=== PATIENT | female | born 1995 | race Caucasian/White ===

== ENCOUNTER 2020-08-17 19:16 | Inpatient (IN) ==
--- NOTE | 2020-08-17 19:53 | Emergency Department Note ---
Impression & Plan Mood disorder, Suicidal ideation ED Provider Note NAME: VICKY HINSON AGE: 25 SEX: F : 1995 ARRIVES VIA: Walk-In INFORMANT: Patient ED PROVIDER(S): Mau Zaldivar DO CHIEF COMPLAINT: Feeling unsafe at home HPI: Patient is a 25-year-old female who presents the ER for as she has a history of depression anxiety, PTSD, ADHD and both her therapist and psychia trist question bipolar. She was initially tapering off her Celexa and everything started to get worse. They stopped this. They put her on Seroquel on Wednesday. Nothing has improved. She is having continued panic attacks. She sees no and 2 days. She notes she has having trouble managing getting through each hour during the day. She feels as though she is going to hurt her self. She took a tab of Benadryl to help her sleep but ended up dumping the bottle down the drain as she was concerned that she was going to overdose with this medication. She did the same thing with muscle relaxer. She does not trust herself with any medications at this time. She wants to come in to be evaluated . She has no complaints at this time. Pt denies headache, change in vision, fevers, chest pain, shortness of breath, nausea, vomiting, diarrhea, and pain with urination. ROS: See above HPI for pertinent positives & negatives. A total of 10 systems reviewed and were otherwise negative. PAST MEDICAL HISTORY:Anxiety PAST SURGICAL HISTORY:None FAMILY HISTORY:See Below SOCIAL HISTORY:See Below HOME MEDICATIONS:See Below ALLERGIES:See Below VITALS:See Below PHYSICAL EXAMINATION: GENERAL: Sitting up in bed, alert, tearful and upset EYE EXAM: normal conjunctiva. OROPHARYNX: no exudate, no erythema, lips, buccal mucosa, and tongue normal and mucous membranes are moist NECK: supple, no nuchal rigidity, no adenopathy, non-tender LUNGS: Clear to auscultation. Normal chest wall mechanics HEART: no murmurs, S1 normal and S2 normal ABDOMEN: abdomen soft, non-tender, normo-active bowel sounds, no masses, no rebound or guarding. BACK: Back is symmetrical on inspection and there is no deformity, no midline tenderness, no CVA tenderness. SKIN: no rashes and no bruising UPPER EXTREMITIES: upper extremities are grossly normal. LOWER EXTREMITIES: No pitting edema. NEURO EXAM: Normal sensorium, cranial nerves II-XII grossly intact, normal speech, no gross weakness of arms, no gross weakness of legs. PSYCH: Admits to suicidal thoughts and feeling unsafe at home. She feels helpless is having trouble sleeping. MEDICAL DECISION MAKING: Patient is a 25-year-old female who presents the ER for depression and anxiety. She notes that she has become so anxious that she is struggling to make it through each hour. She feels unsafe that she does not trust herself at home. She does have some thoughts of wanting to kill herself. She denies any auditory visual hallucinations. Labs were obtained showed no significant leukocytosis or anemia. BMP normal LFTs TSH was unremarkable. UA was negative. was negative. Tox was negative. Alcohol was negative. Bed search was suspended and patient was signed out to Dr. Mullins at the change of shift awaiting placement. Observation Status: Indication: Psychiatric evaluation and placement Patient with a family history of heart disease, was seen first at 1930 hrs and was necessary in order to determine medical stability and placement and avoid unnecessary admission. Upon reevaluation, 4.5 hours of observation revealed that the patient should be observed until the morning when bed search resumes. Disposition date and time 08/17/20 at 20 3045 Triage Nursing notes reviewed. Prior medical records reviewed Vital Signs: reviewed and remarkable for no significant abnormalities Differential diagnosis: Mood disorder, infection, hypoglycemia, electrolyte abnormalities, cardiac sources, intracerebral event, toxicologic, trauma, neurologic, as well as other pathologies. ER treatment provided: See below Diagnostics interpreted by me: ECG: none Laboratory studies: As stated above and show below. Imaging studies: See below Consultation(s): none ED COURSE: Procedures: none Critical Care: None Past Med/Surg History Medical History (Updated 08/17/20 @ 23:41 by Mau Zaldivar DO) Urinary tract infection Social History Smoking Status: Current every day smoker Preferred Language: Estonian current occupational status: student Feels Safe at Home: Yes Allergies Allergies Allergy/AdvReac Type Severity Reaction Status Date / Time No Known Allergies Allergy Verified 09/30/19 21:44 Home Meds Home Medications Medication Instructions Recorded Confirmed citalopram 20 mg PO DAILY 09/30/19 08/17/20 dextroamphetamine-amphetamine 25 mg PO QAM PRN 09/30/19 08/17/20 [Adderall XR] dextroamphetamine-amphetamine 10 mg PO DAILY PRN 09/30/19 08/17/20 [Adderall] etonogestrel [Nexplanon] 68 mg SUBDERMAL DIRECTED 09/30/19 08/17/20 quetiapine 50 mg PO HS 08/17/20 08/17/20 Results & Data (ED) Vital Signs Vital Signs - 24 hr 08/17/20 19:29 Temperature 37.4 C Temperature Source Oral Pulse Rate 92 H Respiratory Rate 18 Respiratory Effort / Characteristics Non-Labored Respiratory Depth Normal Blood Pressure 124/88 Blood Pressure Mean 100 Blood Pressure Position Sitting Pulse Oximetry 99 Oxygen Delivery Method Room Air Sepsis Recent Fever Within 48 Hours No Sepsis New/Unexplained Change in Mental Status No Sepsis Action Taken by Nursing No Action Required Laboratory Data Result diagrams: 08/17/20 19:55 08/17/20 19:55 Lab Results 08/17/20 08/17/20 08/17/20 Range/Units 19:43 19:43 19:43 WBC (4.8-10.8) K/uL RBC (4.2-5.4) M/uL Hgb (12.0-16.0) g/dL Hct (37-47) % MCV (80-100) fL MCH (25-34) pg MCHC (32-36) g/dL RDW Std Deviation (36.4-46.3) fL RDW Coeff of Kamille (11.5-14.5) % Plt Count (130-400) K/uL MPV (7.4-10.4) fL Immature Gran % (Auto) % Neut % (Auto) % Lymph % (Auto) % Woods % (Auto) % Eos % (Auto) % Baso % (Auto) % Neut # (Auto) (1.4-6.5) K/uL Lymph # (Auto) (1.2-3.4) K/uL Woods # (Auto) (0.11-0.59) K/uL Eos # (Auto) (0-0.5) K/uL Baso # (Auto) (0-0.2) K/uL Immature Gran # (Auto) (0.00-0.02) K/uL Sodium (136-145) mmol/L Potassium (3.5-5.1) mmol/L Chloride (98-107) mmol/L Carbon Dioxide (21-32) mmol/L Anion Gap (3-11) BUN (7-18) mg/dl Creatinine (0.6-1.2) mg/dl Est Cr Clr Drug Dosing Est GFR ( Amer) Est GFR (Non-Af Amer) BUN/Creatinine Ratio (10-20) Glucose (70-99) mg/dl Calcium (8.5-10.1) mg/dl Total Bilirubin (0.2-1) mg/dl AST (15-37) U/L ALT (12-78) U/L Alkaline Phosphatase (45-117) U/L Total Protein (6.4-8.2) gm/dl Albumin (3.4-5.0) gm/dl Globulin (2.5-4.0) gm/dl Albumin/Globulin Ratio (0.9-2) TSH (0.300-4.500) uIu/ml Urine Color Yellow Urine Appearance Clear (Clear) Urine pH 7.5 (4.5-7.5) Ur Specific [place] 1.022 (1.000-1.030) Urine Protein Negative (Negative) Urine Glucose (UA) Negative (Negative) Urine Ketones Trace H (Negative) Urine Blood Negative (Negative) Urine Nitrite Negative (Negative) Urine Bilirubin Negative (Negative) Urine Urobilinogen Negative (Negative) Ur Leukocyte Esterase Negative (Negative) POC Ur Test NEG (NEG) Salicylates (2.8-20) mg/dl Urine Opiates Screen Neg (Neg) Ur Methadone, Qual Neg (Neg) Acetaminophen (10-30) ug/ml Urine Barbiturates Neg (Neg) Ur Phencyclidine (PCP) Neg (Neg) U Amphetamin/Meth Scrn Pos H (Neg) MDMA (Ecstasy) Screen Neg (Neg) U Benzodiazepines Scrn Neg (Neg) Ur Cocaine Metabolite Neg (Neg) U Marijuana (THC) Screen Neg (Neg) Ethyl Alcohol mg/dL (0-3) mg/dl 08/17/20 08/17/20 08/17/20 Range/Units 19:55 19:55 19:55 WBC 7.61 (4.8-10.8) K/uL RBC 4.57 (4.2-5.4) M/uL Hgb 15.0 (12.0-16.0) g/dL Hct 42.0 (37-47) % MCV 91.9 (80-100) fL MCH 32.8 (25-34) pg MCHC 35.7 (32-36) g/dL RDW Std Deviation 41.7 (36.4-46.3) fL RDW Coeff of Kamille 12.3 (11.5-14.5) % Plt Count 360 (130-400) K/uL MPV 9.1 (7.4-10.4) fL Immature Gran % (Auto) 0.1 % Neut % (Auto) 72.8 % Lymph % (Auto) 19.7 % Woods % (Auto) 5.9 % Eos % (Auto) 1.4 % Baso % (Auto) 0.1 % Neut # (Auto) 5.53 (1.4-6.5) K/uL Lymph # (Auto) 1.50 (1.2-3.4) K/uL Woods # (Auto) 0.45 (0.11-0.59) K/uL Eos # (Auto) 0.11 (0-0.5) K/uL Baso # (Auto) 0.01 (0-0.2) K/uL Immature Gran # (Auto) 0.01 (0.00-0.02) K/uL Sodium 138 (136-145) mmol/L Potassium 3.6 (3.5-5.1) mmol/L Chloride 105 (98-107) mmol/L Carbon Dioxide 28 (21-32) mmol/L Anion Gap 5.0 (3-11) BUN 10 (7-18) mg/dl Creatinine 0.80 (0.6-1.2) mg/dl Est Cr Clr Drug Dosing Not Reportable Est GFR ( Amer) 120.4 Est GFR (Non-Af Amer) 103.9 BUN/Creatinine Ratio 12.7 (10-20) Glucose 95 (70-99) mg/dl Calcium 9.4 (8.5-10.1) mg/dl Total Bilirubin 0.5 (0.2-1) mg/dl AST 10 L (15-37) U/L ALT 17 (12-78) U/L Alkaline Phosphatase 57 (45-117) U/L Total Protein 7.8 (6.4-8.2) gm/dl Albumin 4.0 (3.4-5.0) gm/dl Globulin 3.8 (2.5-4.0) gm/dl Albumin/Globulin Ratio 1.1 (0.9-2) TSH 0.938 (0.300-4.500) uIu/ml Urine Color Urine Appearance (Clear) Urine pH (4.5-7.5) Ur Specific [place] (1.000-1.030) Urine Protein (Negative) Urine Glucose (UA) (Negative) Urine Ketones (Negative) Urine Blood (Negative) Urine Nitrite (Negative) Urine Bilirubin (Negative) Urine Urobilinogen (Negative) Ur Leukocyte Esterase (Negative) POC Ur Test (NEG) Salicylates < 1.7 L (2.8-20) mg/dl Urine Opiates Screen (Neg) Ur Methadone, Qual (Neg) Acetaminophen < 2 L (10-30) ug/ml Urine Barbiturates (Neg) Ur Phencyclidine (PCP) (Neg) U Amphetamin/Meth Scrn (Neg) MDMA (Ecstasy) Screen (Neg) U Benzodiazepines Scrn (Neg) Ur Cocaine Metabolite (Neg) U Marijuana (THC) Screen (Neg) Ethyl Alcohol mg/dL (0-3) mg/dl 08/17/20 Range/Units 19:55 WBC (4.8-10.8) K/uL RBC (4.2-5.4) M/uL Hgb (12.0-16.0) g/dL Hct (37-47) % MCV (80-100) fL MCH (25-34) pg MCHC (32-36) g/dL RDW Std Deviation (36.4-46.3) fL RDW Coeff of Kamille (11.5-14.5) % Plt Count (130-400) K/uL MPV (7.4-10.4) fL Immature Gran % (Auto) % Neut % (Auto) % Lymph % (Auto) % Woods % (Auto) % Eos % (Auto) % Baso % (Auto) % Neut # (Auto) (1.4-6.5) K/uL Lymph # (Auto) (1.2-3.4) K/uL Woods # (Auto) (0.11-0.59) K/uL Eos # (Auto) (0-0.5) K/uL Baso # (Auto) (0-0.2) K/uL Immature Gran # (Auto) (0.00-0.02) K/uL Sodium (136-145) mmol/L Potassium (3.5-5.1) mmol/L Chloride (98-107) mmol/L Carbon Dioxide (21-32) mmol/L Anion Gap (3-11) BUN (7-18) mg/dl Creatinine (0.6-1.2) mg/dl Est Cr Clr Drug Dosing Est GFR ( Amer) Est GFR (Non-Af Amer) BUN/Creatinine Ratio (10-20) Glucose (70-99) mg/dl Calcium (8.5-10.1) mg/dl Total Bilirubin (0.2-1) mg/dl AST (15-37) U/L ALT (12-78) U/L Alkaline Phosphatase (45-117) U/L Total Protein (6.4-8.2) gm/dl Albumin (3.4-5.0) gm/dl Globulin (2.5-4.0) gm/dl Albumin/Globulin Ratio (0.9-2) TSH (0.300-4.500) uIu/ml Urine Color Urine Appearance (Clear) Urine pH (4.5-7.5) Ur Specific [place] (1.000-1.030) Urine Protein (Negative) Urine Glucose (UA) (Negative) Urine Ketones (Negative) Urine Blood (Negative) Urine Nitrite (Negative) Urine Bilirubin (Negative) Urine Urobilinogen (Negative) Ur Leukocyte Esterase (Negative) POC Ur Test (NEG) Salicylates (2.8-20) mg/dl Urine Opiates Screen (Neg) Ur Methadone, Qual (Neg) Acetaminophen (10-30) ug/ml Urine Barbiturates (Neg) Ur Phencyclidine (PCP) (Neg) U Amphetamin/Meth Scrn (Neg) MDMA (Ecstasy) Screen (Neg) U Benzodiazepines Scrn (Neg) Ur Cocaine Metabolite (Neg) U Marijuana (THC) Screen (Neg) Ethyl Alcohol mg/dL < 3.0 (0-3) mg/dl Discharge Plan Visit Data Chief Complaint: Mental Health Evaluation Stated Complaint: MENTAL HEALTH EVALUATION ED Provider: Mau Zaldivar Discharge Problem: Mood disorder, Suicidal ideation Forms Stand Alone Forms: [facility], Suicide Prevention Resources Prescriptions Prescriptions: No Action dextroamphetamine-amphetamine [Adderall] 10 mg Tablet 10 mg PO DAILY PRN (Reason: Focus) RF: 0 citalopram 20 mg Tablet 20 mg PO DAILY RF: 0 dextroamphetamine-amphetamine [Adderall XR] 20 mg Capsule,Extended Release 24hr 25 mg PO QAM PRN (Reason: Focus) RF: 0 Nexplanon 68 mg Implant 68 mg SUBDERMAL DIRECTED RF: 0 quetiapine 25 mg tablet 50 mg PO HS RF: 0
[2020-08-17 20:03] LABS: Appearance Urine Clear (Clear); Bilirubin Urine Negative (Negative); Blood Urine Negative (Negative); Color Urine Yellow; Glucose Urine UA Negative (Negative); Ketones Urine Trace (Negative); Leukocyte Esterase Urine Negative (Negative); Nitrite Urine Negative (Negative); Protein Urine Negative (Negative); Specific Gravity Urine 1.022 (1.000-1.030); Urobilinogen Urine Negative (Negative); pH Urine 7.5 (4.5-7.5)
[2020-08-17 20:09] LABS: Basophils # (auto) 0.01 K/uL (0-0.2); Basophils % (auto) 0.1 %; Eosinophils # (auto) 0.11 K/uL (0-0.5); Eosinophils % (auto) 1.4 %; Immature Granulocytes # (auto) 0.01 K/uL (0.00-0.02); Immature Granulocytes % (auto) 0.1 %; Lymphocytes % (auto) 19.7 %; Mean Corpuscular Hemoglobin 32.8 pg (25-34); Mean Corpuscular Hgb Conc 35.7 g/dL (32-36); Mean Corpuscular Volume 91.9 fL (80-100); Mean Platelet Volume 9.1 fL (7.4-10.4); Monocytes # (auto) 0.45 K/uL (0.11-0.59); Monocytes % (auto) 5.9 %; Neutrophils # (auto) 5.53 K/uL (1.4-6.5); Neutrophils % (auto) 72.8 %; Platelet Count 360 K/uL (130-400); RDW Coefficient of Variation 12.3 % (11.5-14.5); RDW Standard Deviation 41.7 fL (36.4-46.3); Red Blood Count 4.57 M/uL (4.2-5.4); White Blood Count 7.61 K/uL (4.8-10.8)
[2020-08-17 20:26] LABS: Alanine Aminotransferase 17 U/L (12-78); Aspartate Aminotransferase 10 U/L (15-37); BUN Creatinine Ratio 12.7 (10-20); Blood Urea Nitrogen 10 mg/dl (7-18); Calcium 9.4 mg/dl (8.5-10.1); Carbon Dioxide 28 mmol/L (21-32); Chloride 105 mmol/L (98-107); Est GFR (African American) 120.4; Est GFR (Non-African American) 103.9; Glucose 95 mg/dl (70-99); Potassium 3.6 mmol/L (3.5-5.1); Sodium 138 mmol/L (136-145)
[2020-08-17 20:28] LABS: Amphetamines+Metham, Urine Pos (Neg); Barbiturates, Urine Neg (Neg); Benzodiazepine, Urine Neg (Neg); Cocaine, Urine Neg (Neg); MDMA (Ecstacy), Urine Neg (Neg); Methadone, Urine Neg (Neg); Opiate, Urine Neg (Neg); Phencyclidine, Urine Neg (Neg)
[2020-08-17 20:37] LABS: Albumin Globulin Ratio 1.1 (0.9-2); Alkaline Phosphatase 57 U/L (45-117); Bilirubin,Total 0.5 mg/dl (0.2-1); Globulin 3.8 gm/dl (2.5-4.0); Thyroid Stimulating Hormone 0.938 uIu/ml (0.300-4.500); Total Protein 7.8 gm/dl (6.4-8.2)
[2020-08-17 20:40] LABS: Acetaminophen < 2 ug/ml (10-30); Salicylate < 1.7 mg/dl (2.8-20)
--- NOTE | 2020-08-17 23:43 | Emergency Department Note ---
ED Visit Note ED Physician Sign Out Note: 25 yr old female with increasing depression and thoughts to overdose on medication this evening. She was evaluated and medically cleared by Dr Zaldivar who signed her out to me pending placement. No medical issues overnight. Accepted to [address] [place] [address] on 201 basis. Dioni Mullins MD
[2020-08-18] MEDS ORDERED: ALUMINUM/MAGNESIUM SUSP 30 ML UDC PO PRN (03:37)
[2020-08-18] MEDS ORDERED: hydrOXYzine HCl 25 MG TAB PO PRN (03:37)
[2020-08-18] MEDS ORDERED: SODIUM CHLORIDE 0.65% NA SOLN 45 ML (OCEAN) PRN (03:37)
[2020-08-18] MEDS ORDERED: ACETAMINOPHEN 325 MG TAB PO PRN (03:37)
[2020-08-18] MEDS ORDERED: BISMUTH SUBSALICYLATE LIQD 236 ML PO PRN (03:37)
[2020-08-18] MEDS ORDERED: MAGNESIUM HYDROXIDE SUSP 30 ML UDC PO PRN (03:37)
[2020-08-18] MEDS: CITALOPRAM 20 MG TAB PO SCH (12:22)
--- NOTE | 2020-08-18 13:14 | History & Physical ---
Date of Service August 18, 2020 Impression / Recommendations Impression 25 yo female with mood instability, increase in acuity and decreased ability to function during Celexa taper due to concerns about recent hypomania with need to clarify dx as patient focussed on borderline personality/DBT work. Some response to Seroquel. (1) Bipolar II disorder: The patient was admitted to the [facility] ([facility] unit) on q15 min checks (behavioral with suicide precautions) for safety. The patient will participate in group, recreational, and milieu therapies and will be offered additional individual and family sessions as clinically appropriate. Psychoeducation was provided re: diagnosis and reviewed how antidepressants can affect cycling. Discussed the personality disorders do not cause level of sleep disruption she is describing. She agreed to resume Celexa taper 10 mg and increase Seroquel to 100 mg po qhs. Risks/benefits/alternatives reviewed re: atypical for mood stabilizer and need for monitoring TD and metabolic parameters. Fasting glucose and cholesterol panel in am, states she's had previously due to family hx of heart disease in older life but unlikely within 3 months. (2) ADHD (attention deficit hyperactivity disorder), inattentive type: resume own supply Adderall XR 25 mg po qam tomorrow, doubt will need booster dose of Adderall 10 mg here as not actively studying. Did confirm no family history of structural cardiac abnormality/arrhythmia. No personal history of cardiac issues. 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 Chief Complaint "My mood is just all over the place all the time and i'm worried I have bipolar or borderline personality disorder". History of Present Illness Patient recently started med management at [facility] with YONI Quiroga. She described ongoing depressive symptoms as well as possible hypomanic behavior so a taper of Celexa was initiated from 30 mg to 20 mg then 10 mg. On 10 mg she started to feel panic and continued to have difficulty sleeping. It was unclear how many of the symptoms were related to discontinuation syndrome vs. breakthrough. She started worrying about having SI that she may act impulsively and was started on low dose Seroquel on 08/14. Despite improvement with sleep she continued to feel that moods were too unpredictable for her to cope and she came to ED due to ongoing crying, sadness, "pain", poor appetite and poor self care. She had flushed her Benadryl as she worried she may OD on it. She also had difficulty caring for her cat. She can't focus due to the emotions, denies it is ADHD related and states that symptoms are generally well controlled on Adderall "until my mood takes over". She states that her periods of low mood and need to sleep excessively (10 hrs or more) can last over 1 month and these alternate with shorter periods of elevated mood like "I wake up jacked to just go". She may get 3-4 hours a night even with OTC melatonin and her roommates (when she had them) would wonder what was up. She denies acting out with SIB but she will blame herself if she gets angry. During an up period, like last week she only slept a few hours and then texted a friend to impulsively drive to [place]. She doesn't know anyone there and didn't have a specific plan, they just turned around and drove back after a few hours. Her mood shifts occur regardless of interpersonal conflict but she does report being very sensitive to perceived slights by peers. Past Psychiatric History Previous Psych History: had seen Dr. Baer prior to his office closing ADHD testing [facility] Debbie Niranjan was prescribing prior to Dr. Baer Current Psychiatric Diagnosis: depression; PTSD; R/O Bipolar Outpatient Services: Veronica Kenny at [facility] Previous Psych Admissions: denied Do You Have Access To A Gun?: No Describe Attempts in the Past: None Past Medication Trials: Zoloft (very activating as dose increased), Wellbutrin 100 mg ineffective, Adderall [address] Baer ("ups and downs") Past Head Trauma/Neuro History History of Concussion/Seizure: Yes one, no postconcussive syn Allergies Allergy/AdvReac Type Severity Reaction Status Date / Time No Known Allergies Allergy Verified 09/30/19 21:44 Home Medications Home Medications Medication Instructions Recorded Confirmed Type citalopram 20 mg PO DAILY 09/30/19 08/17/20 History dextroamphetamine-amphetamine 25 mg PO QAM PRN 09/30/19 08/17/20 History [Adderall XR] dextroamphetamine-amphetamine 10 mg PO DAILY PRN 09/30/19 08/17/20 History [Adderall] etonogestrel [Nexplanon] 68 mg SUBDERMAL DIRECTED 09/30/19 08/17/20 History quetiapine 50 mg PO HS 08/17/20 08/17/20 History Family History Family History of: None (no formal, states extended maternal relatives "have problems") Alcohol History Hx of Alcohol Use Over the Past 12 Months: Yes ("very infrequent") AUDIT Total Score: 2 Smoking Use Have You Smoked or Used Tobacco Products in the Last 30 Days: Yes tobacco type: cigarettes Smoking Status: Light tobacco smoker Substance History Hx of Prescription Med Misuse Over the Past 12 Months: No Hx of Over the Counter Med Misuse Over the Past 12 Months: No Hx of Inhalent Misuse Over the Past 12 Months: No Hx of Organic Substance Use Over the Past 12 Months: Yes (marijuana once a week, CBD) Hx of Illegal Substances/Street Drug Use Over Past 12 Months: No Problems as a Result of Past Substance Use: None Identified Personal History Living Arrangements: Apartment Highest Grade Completed: High School Graduate Employment Status: 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 (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, 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) Beliefs That Will Affect Care: None Current Legal Problems: No Hx Traumatic Life Events: Yes (states related to her living situation 5 years ago but did not elaborate) Patient History Medical History Urinary tract infection Social History Smoking Status: Light tobacco smoker Preferred Language: Kazakh Communication Ability: Effective 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 Beliefs That Will Affect Care: None current occupational status: student Feels Safe at Home: Yes Assistive Devices: Glasses Review of Systems Review of Systems: All systems reviewed & are unremarkable except as noted in HPI & below Physical Exam Psychiatric: Orientation: alert Apperance: appropriately dressed and appropriately groomed Eye Contact: + fair eye contact Motor Behavior: no abnormal motor movements Speech: normal rate/rhythm/volume of speech Affect: + depressed affect and + tearful affect Mood: + depressed mood Thought Process: goal directed thought process Thought Content: reality based without delusions Suicidal Thoughts: denies suicidal thoughts (but unable to function/safety plan outside of the hospital) Homicidal Thoughts: denies homicidal thoughts Hallucinations: no auditory hallucinations and no visual hallucinations Cognition: language grossly intact; + attention not intact Estimated Intelligence: consistent with education level Insight: + limited insight Judgement: + limited judgement Vital Signs (Past 24 Hours): Last Vital Signs Temp 37.4 C 08/18/20 06:30 Pulse 88 08/18/20 06:30 Resp 16 08/18/20 06:30 BP 108/77 08/18/20 06:30 Pulse Ox 99 08/18/20 03:42 Exam Statement: A physical exam was performed in the ED by Dr. Zaldivar for the purposes of medical clearance. I accept that physical as correct and adequate for the purposes of the inpatient physical exam. Results & Data ([facility]) Laboratory Results Laboratory Results - last 24 hr 08/17/20 08/17/20 08/17/20 19:43 19:43 19:43 WBC RBC Hgb Hct MCV MCH MCHC RDW Std Deviation RDW Coeff of Kamille Plt Count MPV Immature Gran % (Auto) Neut % (Auto) Lymph % (Auto) Moody % (Auto) Eos % (Auto) Baso % (Auto) Neut # (Auto) Lymph # (Auto) Moody # (Auto) Eos # (Auto) Baso # (Auto) Immature Gran # (Auto) Sodium Potassium Chloride Carbon Dioxide Anion Gap BUN Creatinine Est Cr Clr Drug Dosing Est GFR ( Amer) Est GFR (Non-Af Amer) BUN/Creatinine Ratio Glucose Calcium Total Bilirubin AST ALT Alkaline Phosphatase Total Protein Albumin Globulin Albumin/Globulin Ratio TSH Urine Color Yellow Urine Appearance Clear Urine pH 7.5 Ur Specific [place] 1.022 Urine Protein Negative Urine Glucose (UA) Negative Urine Ketones Trace H Urine Blood Negative Urine Nitrite Negative Urine Bilirubin Negative Urine Urobilinogen Negative Ur Leukocyte Esterase Negative POC Ur Test NEG Salicylates Urine Opiates Screen Neg Ur Methadone, Qual Neg Acetaminophen Urine Barbiturates Neg Ur Phencyclidine (PCP) Neg U Amphetamines Confirm U Amphetamin/Meth Scrn Pos H U Methamphetamin Confrm MDMA (Ecstasy) Screen Neg U Benzodiazepines Scrn Neg Ur Cocaine Metabolite Neg U Marijuana (THC) Screen Neg Drug Screen Comment Ethyl Alcohol mg/dL COVID-19 Eval Order SARS-CoV-2, RNA, NAAT 08/17/20 08/17/20 08/17/20 19:43 19:55 19:55 WBC 7.61 RBC 4.57 Hgb 15.0 Hct 42.0 MCV 91.9 MCH 32.8 MCHC 35.7 RDW Std Deviation 41.7 RDW Coeff of Kamille 12.3 Plt Count 360 MPV 9.1 Immature Gran % (Auto) 0.1 Neut % (Auto) 72.8 Lymph % (Auto) 19.7 Moody % (Auto) 5.9 Eos % (Auto) 1.4 Baso % (Auto) 0.1 Neut # (Auto) 5.53 Lymph # (Auto) 1.50 Moody # (Auto) 0.45 Eos # (Auto) 0.11 Baso # (Auto) 0.01 Immature Gran # (Auto) 0.01 Sodium 138 Potassium 3.6 Chloride 105 Carbon Dioxide 28 Anion Gap 5.0 BUN 10 Creatinine 0.80 Est Cr Clr Drug Dosing Not Reportable Est GFR ( Amer) 120.4 Est GFR (Non-Af Amer) 103.9 BUN/Creatinine Ratio 12.7 Glucose 95 Calcium 9.4 Total Bilirubin 0.5 AST 10 L ALT 17 Alkaline Phosphatase 57 Total Protein 7.8 Albumin 4.0 Globulin 3.8 Albumin/Globulin Ratio 1.1 TSH 0.938 Urine Color Urine Appearance Urine pH Ur Specific [place] Urine Protein Urine Glucose (UA) Urine Ketones Urine Blood Urine Nitrite Urine Bilirubin Urine Urobilinogen Ur Leukocyte Esterase POC Ur Test Salicylates Urine Opiates Screen Ur Methadone, Qual Acetaminophen Urine Barbiturates Ur Phencyclidine (PCP) U Amphetamines Confirm Pending U Amphetamin/Meth Scrn U Methamphetamin Confrm Pending MDMA (Ecstasy) Screen U Benzodiazepines Scrn Ur Cocaine Metabolite U Marijuana (THC) Screen Drug Screen Comment Pending Ethyl Alcohol mg/dL COVID-19 Eval Order SARS-CoV-2, RNA, NAAT 08/17/20 08/17/20 08/18/20 19:55 19:55 00:29 WBC RBC Hgb Hct MCV MCH MCHC RDW Std Deviation RDW Coeff of Kamille Plt Count MPV Immature Gran % (Auto) Neut % (Auto) Lymph % (Auto) Moody % (Auto) Eos % (Auto) Baso % (Auto) Neut # (Auto) Lymph # (Auto) Moody # (Auto) Eos # (Auto) Baso # (Auto) Immature Gran # (Auto) Sodium Potassium Chloride Carbon Dioxide Anion Gap BUN Creatinine Est Cr Clr Drug Dosing Est GFR ( Amer) Est GFR (Non-Af Amer) BUN/Creatinine Ratio Glucose Calcium Total Bilirubin AST ALT Alkaline Phosphatase Total Protein Albumin Globulin Albumin/Globulin Ratio TSH Urine Color Urine Appearance Urine pH Ur Specific [place] Urine Protein Urine Glucose (UA) Urine Ketones Urine Blood Urine Nitrite Urine Bilirubin Urine Urobilinogen Ur Leukocyte Esterase POC Ur Test Salicylates < 1.7 L Urine Opiates Screen Ur Methadone, Qual Acetaminophen < 2 L Urine Barbiturates Ur Phencyclidine (PCP) U Amphetamines Confirm U Amphetamin/Meth Scrn U Methamphetamin Confrm MDMA (Ecstasy) Screen U Benzodiazepines Scrn Ur Cocaine Metabolite U Marijuana (THC) Screen Drug Screen Comment Ethyl Alcohol mg/dL < 3.0 COVID-19 Eval [facility] SARS-CoV-2, RNA, NAAT 08/18/20 00:29 WBC RBC Hgb Hct MCV MCH MCHC RDW Std Deviation RDW Coeff of Kamille Plt Count MPV Immature Gran % (Auto) Neut % (Auto) Lymph % (Auto) Moody % (Auto) Eos % (Auto) Baso % (Auto) Neut # (Auto) Lymph # (Auto) Moody # (Auto) Eos # (Auto) Baso # (Auto) Immature Gran # (Auto) Sodium Potassium Chloride Carbon Dioxide Anion Gap BUN Creatinine Est Cr Clr Drug Dosing Est GFR ( Amer) Est GFR (Non-Af Amer) BUN/Creatinine Ratio Glucose Calcium Total Bilirubin AST ALT Alkaline Phosphatase Total Protein Albumin Globulin Albumin/Globulin Ratio TSH Urine Color Urine Appearance Urine pH Ur Specific [place] Urine Protein Urine Glucose (UA) Urine Ketones Urine Blood Urine Nitrite Urine Bilirubin Urine Urobilinogen Ur Leukocyte Esterase POC Ur Test Salicylates Urine Opiates Screen Ur Methadone, Qual Acetaminophen Urine Barbiturates Ur Phencyclidine (PCP) U Amphetamines Confirm U Amphetamin/Meth Scrn U Methamphetamin Confrm MDMA (Ecstasy) Screen U Benzodiazepines Scrn Ur Cocaine Metabolite U Marijuana (THC) Screen Drug Screen Comment Ethyl Alcohol mg/dL COVID-19 Eval Order SARS-CoV-2, RNA, NAAT NEGATIVE Current Inpatient Medications Current Inpatient Medications: Current Inpatient Medications Acetaminophen (Acetaminophen 325 Mg Tab) 650 mg PO Q4H PRN PRN Reason: Headache or Minor Fever Stop: 09/17/20 03:36 Al Hydrox/Mg Hydrox/Simethicone (Aluminum/Magnesium Susp 30 Ml Udc) 30 ml PO Q4H PRN PRN Reason: GI Upset Stop: 09/17/20 03:36 Amphetamine/Dextroamphetamine (Amphetamine Asp/Sulf/Dextramph Er 20 Mg Cap) 25 mg PO QAM MEG Stop: 09/02/20 08:59 Bismuth Subsalicylate (Bismuth Subsalicylate Liqd 236 Ml) 15 ml PO PRN PRN PRN Reason: Loose Stool Stop: 09/17/20 03:36 Citalopram Hydrobromide (Citalopram 20 Mg Tab) 10 mg PO DAILY MEG Stop: 09/17/20 11:34 Last Admin: 08/18/20 12:22 Dose: 10 mg Documented by: Hydroxyzine HCl (Hydroxyzine Hcl 25 Mg Tab) 50 mg PO HSZ PRN PRN Reason: Insomnia Stop: 09/17/20 03:36 Hydroxyzine HCl (Hydroxyzine Hcl 25 Mg Tab) 25 mg PO Q4H PRN PRN Reason: Anxiety Stop: 09/17/20 03:36 Magnesium Hydroxide (Magnesium Hydroxide Susp 30 Ml Udc) 30 ml PO DAILY PRN PRN Reason: Constipation Stop: 09/17/20 03:36 Quetiapine Fumarate (Quetiapine Fumarate 100 Mg Tablet) 100 mg PO HS MEG Stop: 09/17/20 21:59 Sodium Chloride (Sodium Chloride 0.65% Na Soln 45 Ml ([place])) 1 - 2 sprays NA PRN PRN PRN Reason: Nasal Dryness/Congestion Stop: 09/17/20 03:36
[2020-08-18] MEDS: hydrOXYzine HCl 25 MG TAB PO PRN (15:28)
[2020-08-18] MEDS: QUEtiapine FUMARATE 100 MG TABLET PO SCH (21:50)
[2020-08-18] MEDS ORDERED: QUEtiapine FUMARATE 25 MG TABLET PO SCH (22:00)
--- NOTE | 2020-08-19 09:14 | Psychiatric Progress Note ---
Date of Service August 19, 2020 Impression / Recommendations Impression 25 yo female with mood instability, increase in acuity and decreased ability to function during Celexa taper due to concerns about recent hypomania with need to clarify dx as patient focused on borderline personality/DBT work. Some response to Seroquel. (1) Bipolar II disorder: 08/18 - The patient was admitted to the [facility] ([facility]) on q15 min checks (behavioral with suicide precautions) for safety. The patient will participate in group, recreational, and milieu therapies and will be offered additional individual and family sessions as clinically appropriate. Psychoeducation was provided re: diagnosis and reviewed how antidepressants can affect cycling. Discussed the personality disorders do not cause level of sleep disruption she is describing. She agreed to resume Celexa taper 10 mg and increase Seroquel to 100 mg po qhs. Risks/benefits/alternatives reviewed re: atypical for mood stabilizer and need for monitoring TD and metabolic parameters. Fasting glucose and cholesterol panel in am, states she's had previously due to family hx of heart disease in older life but unlikely within 3 months. 08/19 - Continue current medication regimen at this time. Discussed a few options with regard to trajectory of medication adjustments. Pt states that she is hoping to continue quetiapine, but that she had also been discussing eventually starting lamotrigine with her outpatient psychiatric prescriber. Given AM grogginess, decision was made to not pursue immediate changes, but patient will be provide with patient information on lamotrigine for further review. - Fasting labs reordered for tomorrow AM, lab delay this morning and patient had already eaten breakfast - Somewhat brief family meeting was conducted with parents yesterday - patient may benefit from contact with another, more local support for discussion of discharge and safety planning (2) ADHD (attention deficit hyperactivity disorder), inattentive type: 08/18 - resume own supply Adderall XR 25 mg po qam tomorrow, doubt will need booster dose of Adderall 10 mg here as not actively studying. Did confirm no family history of structural cardiac abnormality/arrhythmia. No personal history of cardiac issues. 08/19 - Continue as above - monitor for signs of activation/ching/hypomania related to stimulant use as medication is being resumed. 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 Chief Complaint "It's getting better, I guess. Today started out pretty rough." Review of Systems Notes Constitutional: reports morning grogginess Cardiovascular: denied Respiratory: denied Gastrointestinal: denied Neurological: denied Psychiatric: denies symptoms other than stated above Total of at least 10 systems reviewed, pertinent positives as above and in HPI. Sleep Information Total Hours of Sleep: 7.25 Sleep Comments: pt on q-15 minute checks Meal Information Percent Meal Consumed - Lunch: 100 Percent Meal Consumed - Dinner: 100 Nutrition Comment: per meal record Subjective Subjective Patient was seen & assessed and interval progress reviewed with treatment team. Staff report the patient has been participating in group programming. She rated her mood a 4-5/10 and "lonely." Pt was seen today to assess progress since admission. Pt states she feels she is "getting better, I guess" but admits "today started out pretty rough." Pt states "there were two different types of rough this morning. One was that I feel more drowsy with the Seroquel, so i just wanted to go back to sleep. The second kind of rough was just that I was feeling quite anxious, depressed, and lonely." Pt states that she was in a place of "wanting to quiet my mind", and admits that in order to do this she did go back to sleep this morning until ~11:00am. Pt states that overall she is noticing some initial improvement, but continues to be worried about the stability of her mood moving forward. Pt is able to participate in conversation regarding diagnoses, discussing the similarities and differences between BPD and bipolar II disorder, but also that the diagnoses are not mutually exclusive. Pt continues to provide rather strong examples of bipolar II criteria and admits she is learning more about both diagnoses. We reviewed her current medication regimen. Pt states that the quetiapine was started "to make sure I got my sleep", but patient admits that she and her outpatient psychiatric prescriber had already started discussing lamotrigine as well. Pt was willing to consider whether she wished to being the scheduled titration from the hospital setting, versus waiting to follow-up with her outpatient prescriber. Pt agreed to continue recently adjusted medication for now, with plan to follow-up tomorrow to review the topics - as patient admits she is uncertain of what she wishes to do. Pt denies acute SI, but continues to report feelings of "an overwhelming sense of loneliness and abandonment." Pt states she has been finding groups helpful and we discussed working on ways to more reliably engage with peers, both in and out of the inpatient setting, to combat the loneliness she has been feeling. Pt denied other needs or concerns today. Physical Exam Psychiatric Orientation: alert, oriented x 3 and cooperative Apperance: appropriately dressed, appropriately groomed and appeared stated age Eye Contact: good eye contact Motor Behavior: steady gait and station and no abnormal motor movements Speech: normal rate/rhythm/volume of speech Affect: + tearful affect and + blunted affect Mood: + depressed mood Thought Process: goal directed thought process and clear/coherent thought proce ss Thought Content: reality based without delusions and + loneliness Suicidal Thoughts: denies suicidal thoughts Homicidal Thoughts: denies homicidal thoughts Hallucinations: no auditory hallucinations and no visual hallucinations Cognition: attention grossly intact and language grossly intact Estimated Intelligence: consistent with education level Insight: + fair insight Judgement: + fair judgement Vital Signs (Past 24 Hours) Last Vital Signs Temp 36.7 C 08/19/20 06:50 Pulse 82 08/19/20 06:51 Resp 16 08/19/20 06:50 BP 95/69 L 08/19/20 06:51 Pulse Ox 99 08/18/20 03:42 Results & Data ([facility]) Current Inpatient Medications Current Inpatient Medications: Current Inpatient Medications Acetaminophen (Acetaminophen 325 Mg Tab) 650 mg PO Q4H PRN PRN Reason: Headache or Minor Fever Stop: 09/17/20 03:36 Al Hydrox/Mg Hydrox/Simethicone (Aluminum/Magnesium Susp 30 Ml Udc) 30 ml PO Q4H PRN PRN Reason: GI Upset Stop: 09/17/20 03:36 Amphetamine/Dextroamphetamine (Amphetamine Asp/Sulf/Dextramph Er 20 Mg Cap) 25 mg PO QAM MEG Stop: 09/02/20 08:59 Bismuth Subsalicylate (Bismuth Subsalicylate Liqd 236 Ml) 15 ml PO PRN PRN PRN Reason: Loose Stool Stop: 09/17/20 03:36 Citalopram Hydrobromide (Citalopram 20 Mg Tab) 10 mg PO DAILY MEG Stop: 09/17/20 11:34 Last Admin: 08/18/20 12:22 Dose: 10 mg Documented by: Hydroxyzine HCl (Hydroxyzine Hcl 25 Mg Tab) 50 mg PO HSZ PRN PRN Reason: Insomnia Stop: 09/17/20 03:36 Hydroxyzine HCl (Hydroxyzine Hcl 25 Mg Tab) 25 mg PO Q4H PRN PRN Reason: Anxiety Stop: 09/17/20 03:36 Last Admin: 08/18/20 15:28 Dose: 25 mg Documented by: Magnesium Hydroxide (Magnesium Hydroxide Susp 30 Ml Udc) 30 ml PO DAILY PRN PRN Reason: Constipation Stop: 09/17/20 03:36 Adderal Xr 25mg Caps : Patient's Own Controlled Med 1 ea PO QAM MEG Stop: 09/02/20 08:59 Quetiapine Fumarate (Quetiapine Fumarate 100 Mg Tablet) 100 mg PO HS MEG Stop: 09/17/20 21:59 Last Admin: 08/18/20 21:50 Dose: 100 mg Documented by: Sodium Chloride (Sodium Chloride 0.65% Na Soln 45 Ml ([place])) 1 - 2 sprays NA PRN PRN PRN Reason: Nasal Dryness/Congestion Stop: 09/17/20 03:36 Mental Health & Subst Abuse Tx Psychiatrist Name of Psychiatrist: KIMI Sin MSN, MENTAL HEALTH COUNSELOR Psychiatrist's Psychiatric Appointment Comment: [facility] Therapist Name of Therapist: [facility] - Veronica Bray, MS, NCC, RUBBER BALL FINISHER Therapist's Date of Therapist Appointment: 08/26/20 Time of Therapist Appointment: 12:00 p.m. Therapy Appointment Comment: [id number] [facility] [address] [place] [id number] Game Preserve Manager Name of Game Preserve Manager: . Post Discharge Appointments Primary Care Physician Name Of Family Doctor: [facility] Primary Care Provider Appointment Comment: [facility] Contact Information Discharge Discharge Address: [address] [facility], [place] [address]
[2020-08-19] MEDS: CITALOPRAM 20 MG TAB PO SCH (09:36)
[2020-08-19] MEDS: AMPHETAMINE ASP/SULF/DEXTRAMPH ER 20 MG CAP PO SCH (09:37)
[2020-08-19] MEDS: ADDERAL PO SCH (09:38)
[2020-08-19] MEDS: QUEtiapine FUMARATE 100 MG TABLET PO SCH (21:59)
[2020-08-20 09:25] LABS: Glucose Fasting 90 mg/dl (70-99)
--- NOTE | 2020-08-20 09:30 | Psychiatric Progress Note ---
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 There were reported concerns related to recent hypomania and, although patient has been accepting a presumed outpatient diagnosis of borderline personality disorder, it is also likely that she meets criteria for bipolar II disorder as well. Dose of quetiapine has been titrated during her stay and patient was resumed on citalopram 10mg to complete a slower taper of the medication. Pt states she had been discussing lamotrigine with her outpatient psychiatric prescriber, and was agreeable with beginning the medication during her current stay. Pt had an initial meeting with her parents, who are only recently understanding the seriousness of patient's presentation. Pt is hopeful to have another meeting with them to review her symptoms and need for continued support after discharge. Pt will be continuing individual therapy and DBT work and is receiving medication management through [facility]. Inpatient psychiatric hospitalization is medically necessary due to risk of rapid decompensation and harm to self if discharged prematurely. (1) Bipolar II disorder: 08/18 - The patient was admitted to the [facility] on q15 min checks (behavioral with suicide precautions) for safety. The patient will participate in group, recreational, and milieu therapies and will be offered additional individual and family sessions as clinically appropriate. Psychoeducation was provided re: diagnosis and reviewed how antidepressants can affect cycling. Discussed the personality disorders do not cause level of sleep disruption she is describing. She agreed to resume Celexa taper 10 mg and increase Seroquel to 100 mg po qhs. Risks/benefits/alternatives reviewed re: atypical for mood stabilizer and need for monitoring TD and metabolic parameters. Fasting glucose and cholesterol panel in am, states she's had previously due to family hx of heart disease in older life but unlikely within 3 months. 08/19 - Continue current medication regimen at this time. Discussed a few options with regard to trajectory of medication adjustments. Pt states that she is hoping to continue quetiapine, but that she had also been discussing eventually starting lamotrigine with her outpatient psychiatric prescriber. Given AM grogginess, decision was made to not pursue immediate changes, but patient will be provide with patient information on lamotrigine for further review. - Fasting labs reordered for tomorrow AM, lab delay this morning and patient had already eaten breakfast - Somewhat brief family meeting was conducted with parents yesterday - patient may benefit from contact with another, more local support for discussion of discharge and safety planning 08/20 - Pt agreeable with titrating quetiapine to 150mg this evening - will continue citalopram at 10mg. - Pt also expressed desire to begin lamotrigine - risks, benefits, and potential side effects were reviewed. This specifically included risk of SJS and HLH - warning signs and recommendations. Pt verbalized understanding of risks as well as explanation of standard titration. Will initiate 25mg qAM starting with a dose today. - Pt denies acute SI, but admits to still feeling lonely and abandoned. She reports hopefulness that parents will be willing to participate in another family meeting, as she states they have become more aware of the severity of the situation and are making arrangements to return home. (2) ADHD (attention deficit hyperactivity disorder), inattentive type: 08/18 - resume own supply Adderall XR 25 mg po qam tomorrow, doubt will need booster dose of Adderall 10 mg here as not actively studying. Did confirm no family history of structural cardiac abnormality/arrhythmia. No personal history of cardiac issues. 08/19 - 08/20 - Continue as above - monitor for signs of activation/ching/hypomania related to stimulant use as medication is being resumed. 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 Chief Complaint "Yesterday I think I spent a lot of time avoiding addressing my issues." Review of Systems Notes Constitutional: reports less morning grogginess today Cardiovascular: denied Respiratory: denied Gastrointestinal: denied Neurological: denied Psychiatric: denies symptoms other than stated above Total of at least 10 systems reviewed, pertinent positives as above and in HPI. Sleep Information Total Hours of Sleep: 6.5 Sleep Comments: pt on q-15 minute checks Meal Information Percent Meal Consumed - Breakfast: 70 Percent Meal Consumed - Lunch: 100 Percent Meal Consumed - Dinner: 100 Nutrition Comment: per meal record Subjective Subjective Patient was seen & assessed and interval progress reviewed with nursing and social work. Staff report the patient has been cooperative and is engaging with peers and participating in group programming. Will determine if patient is able to identify any local supports whom she feels comfortable engaging in treatment and safety planning. Pt was seen today to assess progress since admission. Pt states that she is feeling less fatigued this morning, which is pleasing to her. She does admit "I think I spent a lot of time avoiding addressing my issues" yesterday, stating that she was attempting to use distraction techniques to prevent ruminations and over-focusing on feelings of loneliness. Pt admits she did have a positive and productive meeting with our evening shift counselor, who "helped me change from black and white thinking to more of a grayscale. It's something I need to keep working on and keep reminding myself of." Pt states that her current mood is "about a 4 or 5" out of 10. We did discuss her "scale", given her desire to also avoid hypomania as well. Pt states her goal mood rating would be "a 7 or 8." Pt reports she spoke with her parents last evening, who are making arrangements to travel home. Pt states "I think it sunk in to them where I was and what was actually going on. They are going to try to be home sometime in September." Pt reports feeling more supported, but still feels it would be helpful to have a conversation with her parents about her struggle with mental health and likely need for ongoing support. Pt states her goal for today is to "call 1 or 2 friends and let them in on what's going on." Pt reports willingness to continue to titrate quetiapine, and requested to begin lamotrigine after reviewing a patient handout given to her yesterday. Pt denies SI, but admits to ongoing feelings of loneliness. She denies other needs or concerns today. Physical Exam Psychiatric Orientation: alert and oriented x 3 Apperance: appropriately dressed, appropriately groomed and appeared stated age Eye Contact: good eye contact Motor Behavior: steady gait and station and no abnormal motor movements Speech: normal rate/rhythm/volume of speech Affect: + anxious affect Mood: + depressed mood and + anxious mood Thought Process: goal directed thought process and clear/coherent thought process Thought Content: reality based without delusions and + loneliness Suicidal Thoughts: denies suicidal thoughts and denies suicidal intent Homicidal Thoughts: denies homicidal thoughts Hallucinations: no auditory hallucinations and no visual hallucinations Cognition: recent memory grossly intact, attention grossly intact and language grossly intact Estimated Intelligence: consistent with education level Insight: + fair insight Judgement: + fair judgement Vital Signs (Past 24 Hours) Last Vital Signs Temp 36.8 C 08/20/20 06:53 Pulse 91 H 08/20/20 06:54 Resp 16 08/20/20 06:53 BP 95/68 L 08/20/20 06:54 Pulse Ox 99 08/18/20 03:42 Results & Data ([facility]) Laboratory Results Laboratory Results - last 24 hr 08/20/20 08:47 Fasting Glucose 90 Triglycerides Pending Cholesterol Pending LDL Cholesterol, Calc Pending VLDL Cholesterol, Calc Pending HDL Cholesterol Pending Cholesterol/HDL Ratio Pending Current Inpatient Medications Current Inpatient Medications: Current Inpatient Medications Acetaminophen (Acetaminophen 325 Mg Tab) 650 mg PO Q4H PRN PRN Reason: Headache or Minor Fever Stop: 09/17/20 03:36 Al Hydrox/Mg Hydrox/Simethicone (Aluminum/Magnesium Susp 30 Ml Udc) 30 ml PO Q4H PRN PRN Reason: GI Upset Stop: 09/17/20 03:36 Amphetamine/Dextroamphetamine (Amphetamine Asp/Sulf/Dextramph Er 20 Mg Cap) 25 mg PO QAM MEG Stop: 09/02/20 08:59 Last Admin: 08/19/20 09:37 Dose: 25 mg Documented by: Bismuth Subsalicylate (Bismuth Subsalicylate Liqd 236 Ml) 15 ml PO PRN PRN PRN Reason: Loose Stool Stop: 09/17/20 03:36 Citalopram Hydrobromide (Citalopram 20 Mg Tab) 10 mg PO DAILY MEG Stop: 09/17/20 11:34 Last Admin: 08/19/20 09:36 Dose: 10 mg Documented by: Hydroxyzine HCl (Hydroxyzine Hcl 25 Mg Tab) 50 mg PO HSZ PRN PRN Reason: Insomnia Stop: 09/17/20 03:36 Hydroxyzine HCl (Hydroxyzine Hcl 25 Mg Tab) 25 mg PO Q4H PRN PRN Reason: Anxiety Stop: 09/17/20 03:36 Last Admin: 08/18/20 15:28 Dose: 25 mg Documented by: Magnesium Hydroxide (Magnesium Hydroxide Susp 30 Ml Udc) 30 ml PO DAILY PRN PRN Reason: Constipation Stop: 09/17/20 03:36 Adderal Xr 25mg Caps : Patient's Own Controlled Med 1 ea PO QAM MEG Stop: 09/02/20 08:59 Last Admin: 08/19/20 09:38 Dose: Not Given Documented by: Quetiapine Fumarate (Quetiapine Fumarate 100 Mg Tablet) 100 mg PO HS MEG Stop: 09/17/20 21:59 Last Admin: 08/19/20 21:59 Dose: 100 mg Documented by: Sodium Chloride (Sodium Chloride 0.65% Na Soln 45 Ml ([place])) 1 - 2 sprays NA PRN PRN PRN Reason: Nasal Dryness/Congestion Stop: 09/17/20 03:36 Mental Health & Subst Abuse Tx Psychiatrist Name of Psychiatrist: KIMI Sin, MSN, DOOR TENDER Psychiatrist's Date of Appointment with Psychiatrist: 08/22/20 Time of Appointment with Psychiatrist: 4:30 p.m. Psychiatric Appointment Comment: [facility] Therapist Name of Therapist: [facility] - Veronica Bray, MS, NCC, DIRECTOR OF ADULT EPILEPSY Therapist's Date of Therapist Appointment: 08/26/20 Time of Therapist Appointment: 12:00 p.m. Therapy Appointment Comment: [address] [place] [address] [facility] [address] [place] [address] Assembler Equipment Name of Assembler Equipment: . Post Discharge Appointments Primary Care Physician Name Of Family Doctor: [facility] Primary Care Provider Appointment Comment: [facility] Contact Information Discharge Discharge Address: [address] [place] [place] [address]
[2020-08-20 09:32] LABS: Chol HDL Ratio 2; Cholesterol 124 mg/dl (0-200); HDL Cholesterol 61 mg/dl; LDL Cholesterol Calculated 48 mg/dl; Triglycerides 77 mg/dl (0-150); VLDL Cholesterol 15 mg/dl
[2020-08-20] MEDS: CITALOPRAM 20 MG TAB PO SCH (09:32)
[2020-08-20] MEDS: ADDERAL PO SCH (09:35)
[2020-08-20] MEDS: AMPHETAMINE ASP/SULF/DEXTRAMPH ER 20 MG CAP PO SCH (09:35)
[2020-08-20] MEDS: lamoTRIgine 25 MG TAB PO SCH (11:13)
[2020-08-20] MEDS: QUEtiapine FUMARATE 100 MG TABLET PO SCH (22:03)
[2020-08-21 08:11] LABS: Amphetamine Urine, Confirm 11800 ng/mL (<250); Methamphetamine, Ur Confirm NEGATIVE ng/mL (<250)
--- NOTE | 2020-08-21 09:21 | Psychiatric Progress Note ---
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 There were reported concerns related to recent hypomania and, although patient has been accepting a presumed outpatient diagnosis of borderline personality disorder, it is also likely that she meets criteria for bipolar II disorder as well. Dose of quetiapine has been titrated during her stay and patient was resumed on citalopram 10mg to complete a slower taper of the medication. Pt states she had been discussing lamotrigine with her outpatient psychiatric prescriber, and was agreeable with beginning the medication during her current stay. Pt had an initial meeting with her parents, who are only recently understanding the seriousness of patient's presentation. Pt is hopeful to have another meeting with them to review her symptoms and need for continued support after discharge. Pt will be continuing individual therapy and DBT work and is receiving medication management through [facility]. Inpatient psychiatric hospitalization is medically necessary due to risk of rapid decompensation and harm to self if discharged prematurely. (1) Bipolar II disorder: 08/18 - The patient was admitted to the [facility] ([facility] mental health unit) on q15 min checks (behavioral with suicide precautions) for safety. The patient will participate in group, recreational, and milieu therapies and will be offered additional individual and family sessions as clinically appropriate. Psychoeducation was provided re: diagnosis and reviewed how antidepressants can affect cycling. Discussed the personality disorders do not cause level of sleep disruption she is describing. She agreed to resume Celexa taper 10 mg and increase Seroquel to 100 mg po qhs. Risks/benefits/alternatives reviewed re: atypical for mood stabilizer and need for monitoring TD and metabolic parameters. Fasting glucose and cholesterol panel in am, states she's had previously due to family hx of heart disease in older life but unlikely within 3 months. 08/19 - Continue current medication regimen at this time. Discussed a few options with regard to trajectory of medication adjustments. Pt states that she is hoping to continue quetiapine, but that she had also been discussing eventually starting lamotrigine with her outpatient psychiatric prescriber. Given AM grogginess, decision was made to not pursue immediate changes, but patient will be provide with patient information on lamotrigine for further review. - Fasting labs reordered for tomorrow AM, lab delay this morning and patient had already eaten breakfast - Somewhat brief family meeting was conducted with parents yesterday - patient may benefit from contact with another, more local support for discussion of discharge and safety planning 08/20 - Pt agreeable with titrating quetiapine to 150mg this evening - will continue citalopram at 10mg. - Pt also expressed desire to begin lamotrigine - risks, benefits, and potential side effects were reviewed. This specifically included risk of SJS and HLH - warning signs and recommendations. Pt verbalized understanding of risks as well as explanation of standard titration. Will initiate 25mg qAM starting with a dose today. - Pt denies acute SI, but admits to still feeling lonely and abandoned. She reports hopefulness that parents will be willing to participate in another family meeting, as she states they have become more aware of the severity of the situation and are making arrangements to return home. 08/21 - Patient has been tolerating quetiapine 150 mg and lamotrigine 25 mg initiated this morning and current doses of lamotrigine and quetiapine will be continued. - Patient agrees to discontinue citalopram 10 mg while she stays in the unit and it will be discontinued from tomorrow morning. - Patient denies acute SI. - Patient has been working on her loneliness feeling to be independent and the living plan after being discharged with discussed. - Lab results reviewed with the patient and fasting lipid panel and fasting glucose are all within normal limits. (2) ADHD (attention deficit hyperactivity disorder), inattentive type: 08/18 - resume own supply Adderall XR 25 mg po qam tomorrow, doubt will need booster dose of Adderall 10 mg here as not actively studying. Did confirm no family history of structural cardiac abnormality/arrhythmia. No personal history of cardiac issues. 08/19 - 08/20 - Continue as above - monitor for signs of activation/ching/hypomania related to stimulant use as medication is being resumed. 08/21 - The potential risks of induced hypomanic episodes with stimulant use was discussed with the patient when the patient wanted to resume booster dose of Adderall 10 mg and she understands this and she wants to resume Adderall 10 mg when it is necessary. 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 Chief Complaint "I have been getting better". Review of Systems Notes Constitutional: denied cardiovascular: denied Respiratory: denied GI: denied Neurologic: denied Psychiatric: denies symptoms other than stated above Remainder of 10 body systems also reviewed and denied other than noted above. Sleep Information Total Hours of Sleep: 7.5 Sleep Comments: Patient slept 0.5 hours prior to 0000. Meal Information Percent Meal Consumed - Breakfast: 90 Percent Meal Consumed - Lunch: 100 Percent Meal Consumed - Dinner: 90 Nutrition Comment: per meal record Subjective Subjective Patient was seen & assessed and interval progress reviewed with treatment team. Staff report the patient has been participating in group programming. Patient rated his mood 03/10 and "processing" last evening. Patient was seen today to assess progress since admission. She states that she has been getting better. She has been feeling more comfortable with her current medication regimen and new diagnosis of bipolar 2 disorder. She agrees with continuing current dose of quetiapine 150 mg and lamotrigine 25 mg and further titration of lamotrigine will be done in the outpatient setting. She tried quetiapine 150 mg last night and she slept well almost 9 to 10 hours. She states that her sleep has been re gulated really well up to 8 hours daily after starting quetiapine and the consistency of sleep also makes her mood stabilized at the same time. She slept only 3 hours for almost 1 or 2 weeks before admission and other days, she slept almost 12 hours when she felt down. Also she has been implementing coping skills and they have been helping her controlling mood and anxious feeling. She feels comfortable discontinuing citalopram 10 mg from tomorrow morning and she wants to this done during the hospital stay. She also questions if she can use a booster dose of Adderall in the afternoon because she feels fidgety, irritable and anxious around 3 PM when Adderall XR 25 mg wears off but she states that her anxious feeling is tolerable. However she admits that instant release of Adderall made her feel more stressed out and she is okay without taking them while staying in the hospital. She is also concerned about feeling loneliness after being discharged and the plan, staying with her family friend temporarily after being discharged and then with her parents for the time being, is discussed. Patient also admits that she needs to get used to living by herself since she wants to be independent and this will a thing she needs to work on after discharge. Patient denies suicidal ideation currently. Patient denies other needs or concerns today. Physical Exam Psychiatric Orientation: alert and oriented x 3 Apperance: appropriately dressed and appropriately groomed Eye Contact: good eye contact Motor Behavior: steady gait and station and no abnormal motor movements Speech: normal rate/rhythm/volume of speech Affect: + depressed affect and mood congruent with affect Mood: + depressed mood (but more stablized) Thought Process: goal directed thought process, linear/logical thought process, clear/coherent thought process and thought association intact Thought Content: reality based without delusions; no hopelessness and no loneliness Suicidal Thoughts: denies suicidal thoughts, denies suicidal plan and denies suicidal intent Homicidal Thoughts: denies homicidal thoughts Hallucinations: no auditory hallucinations and no visual hallucinations Cognition: recent memory grossly intact, remote memory grossly intact, attention grossly intact and language grossly intact Estimated Intelligence: + above average estimated intelligence Insight: good insight Judgement: good judgement Vital Signs (Past 24 Hours) Last Vital Signs Temp 36.6 C 08/21/20 06:47 Pulse 88 08/21/20 06:48 Resp 16 08/21/20 06:47 BP 91/61 L 08/21/20 06:48 Pulse Ox 99 08/18/20 03:42 Results & Data ([facility]) Laboratory Results Laboratory Results - last 24 hr 08/17/20 08/20/20 19:43 08:47 Fasting Glucose 90 Triglycerides 77 Cholesterol 124 LDL Cholesterol, Calc 48 VLDL Cholesterol, Calc 15 HDL Cholesterol 61 Cholesterol/HDL Ratio 2 U Amphetamines Confirm 17225 H U Methamphetamin Confrm NEGATIVE Drug Screen Comment SEE NOTE Current Inpatient Medications Current Inpatient Medications: Current Inpatient Medications Acetaminophen (Acetaminophen 325 Mg Tab) 650 mg PO Q4H PRN PRN Reason: Headache or Minor Fever Stop: 09/17/20 03:36 Al Hydrox/Mg Hydrox/Simethicone (Aluminum/Magnesium Susp 30 Ml Udc) 30 ml PO Q4H PRN PRN Reason: GI Upset Stop: 09/17/20 03:36 Amphetamine/Dextroamphetamine (Amphetamine Asp/Sulf/Dextramph Er 20 Mg Cap) 25 mg PO QAM MEG Stop: 09/02/20 08:59 Last Admin: 08/20/20 09:35 Dose: 25 mg Documented by: Bismuth Subsalicylate (Bismuth Subsalicylate Liqd 236 Ml) 15 ml PO PRN PRN PRN Reason: Loose Stool Stop: 09/17/20 03:36 Citalopram Hydrobromide (Citalopram 20 Mg Tab) 10 mg PO DAILY MEG Stop: 09/17/20 11:34 Last Admin: 08/20/20 09:32 Dose: 10 mg Documented by: Hydroxyzine HCl (Hydroxyzine Hcl 25 Mg Tab) 50 mg PO HSZ PRN PRN Reason: Insomnia Stop: 09/17/20 03:36 Hydroxyzine HCl (Hydroxyzine Hcl 25 Mg Tab) 25 mg PO Q4H PRN PRN Reason: Anxiety Stop: 09/17/20 03:36 Last Admin: 08/18/20 15:28 Dose: 25 mg Documented by: Lamotrigine (Lamotrigine 25 Mg Tab) 25 mg PO QAM [facility] Stop: 09/19/20 10:29 Last Admin: 08/20/20 11:13 Dose: 25 mg Documented by: Magnesium Hydroxide (Magnesium Hydroxide Susp 30 Ml Udc) 30 ml PO DAILY PRN PRN Reason: Constipation Stop: 09/17/20 03:36 Adderal Xr 25mg Caps : Patient's Own Controlled Med 1 ea PO QAM [facility] Stop: 09/02/20 08:59 Last Admin: 08/20/20 09:35 Dose: Not Given Documented by: Quetiapine Fumarate (Quetiapine Fumarate 100 Mg Tablet) 150 mg PO HS MEG Stop: 09/19/20 21:59 Last Admin: 08/20/20 22:03 Dose: 150 mg Documented by: Sodium Chloride (Sodium Chloride 0.65% Na Soln 45 Ml ([place])) 1 - 2 sprays NA PRN PRN PRN Reason: Nasal Dryness/Congestion Stop: 09/17/20 03:36 Mental Health & Subst Abuse Tx Psychiatrist Name of Psychiatrist: KIMI Sin, MSN, GR[employer]ER CHIPPER Psychiatrist's Date of Appointment with Psychiatrist: 08/22/20 Time of Appointment with Psychiatrist: 4:30 p.m. Psychiatric Appointment Comment: [facility] Therapist Name of Therapist: [facility] - Veronica Bray, MS, NCC, BEADING MACHINE OPERATOR Therapist's Date of Therapist Appointment: 08/26/20 Time of Therapist Appointment: 12:00 p.m. Therapy Appointment Comment: [address] [place] [address] [place] [address] Rehab Office Coordinator Name of Rehab Office Coordinator: . Post Discharge Appointments Primary Care Physician Name Of Family Doctor: [facility] Primary Care Provider Appointment Comment: [facility] Contact Information Discharge Discharge Address: [address] [place] [address], [place] [address]
[2020-08-21] MEDS: AMPHETAMINE ASP/SULF/DEXTRAMPH ER 20 MG CAP PO SCH (10:27)
[2020-08-21] MEDS: CITALOPRAM 20 MG TAB PO SCH (10:27)
[2020-08-21] MEDS: ADDERAL PO SCH (10:28)
[2020-08-21] MEDS: lamoTRIgine 25 MG TAB PO SCH (10:28)
[2020-08-21] MEDS: QUEtiapine FUMARATE 100 MG TABLET PO SCH (22:01)
[2020-08-22] MEDS: AMPHETAMINE ASP/SULF/DEXTRAMPH ER 20 MG CAP PO SCH (09:11)
[2020-08-22] MEDS: lamoTRIgine 25 MG TAB PO SCH (09:11)
[2020-08-22] MEDS: ADDERAL PO SCH (09:11)
[2020-08-22] MEDS: hydrOXYzine HCl 25 MG TAB PO PRN (09:37)
--- NOTE | 2020-08-22 10:34 | Psychiatric Progress Note ---
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 There were reported concerns related to recent hypomania and, although patient has been accepting a presumed outpatient diagnosis of borderline personality disorder, it is also likely that she meets criteria for bipolar II disorder as well. Dose of quetiapine has been titrated during her stay and patient was resumed on citalopram 10mg to complete a slower taper of the medication. Pt states she had been discussing lamotrigine with her outpatient psychiatric prescriber, and was agreeable with beginning the medication during her current stay. Pt had an initial meeting with her parents, who are only recently understanding the seriousness of patient's presentation. Pt is hopeful to have another meeting with them to review her symptoms and need for continued support after discharge. Pt will be continuing individual therapy and DBT work and is receiving medication management through [facility]. Inpatient psychiatric hospitalization is medically necessary due to risk of rapid decompensation and harm to self if discharged prematurely. (1) Bipolar II disorder: 08/18 - The patient was admitted to the [facility] ([facility] mental health unit) on q15 min checks (behavioral with suicide precautions) for safety. The patient will participate in group, recreational, and milieu therapies and will be offered additional individual and family sessions as clinically appropriate. Psychoeducation was provided re: diagnosis and reviewed how antidepressants can affect cycling. Discussed the personality disorders do not cause level of sleep disruption she is describing. She agreed to resume Celexa taper 10 mg and increase Seroquel to 100 mg po qhs. Risks/benefits/alternatives reviewed re: atypical for mood stabilizer and need for monitoring TD and metabolic parameters. Fasting glucose and cholesterol panel in am, states she's had previously due to family hx of heart disease in older life but unlikely within 3 months. 08/19 - Continue current medication regimen at this time. Discussed a few options with regard to trajectory of medication adjustments. Pt states that she is hoping to continue quetiapine, but that she had also been discussing eventually starting lamotrigine with her outpatient psychiatric prescriber. Given AM grogginess, decision was made to not pursue immediate changes, but patient will be provide with patient information on lamotrigine for further review. - Fasting labs reordered for tomorrow AM, lab delay this morning and patient had already eaten breakfast - Somewhat brief family meeting was conducted with parents yesterday - patient may benefit from contact with another, more local support for discussion of discharge and safety planning 08/20 - Pt agreeable with titrating quetiapine to 150mg this evening - will continue citalopram at 10mg. - Pt also expressed desire to begin lamotrigine - risks, benefits, and potential side effects were reviewed. This specifically included risk of SJS and HLH - warning signs and recommendations. Pt verbalized understanding of risks as well as explanation of standard titration. Will initiate 25mg qAM starting with a dose today. - Pt denies acute SI, but admits to still feeling lonely and abandoned. She reports hopefulness that parents will be willing to participate in another family meeting, as she states they have become more aware of the severity of the situation and are making arrangements to return home. 08/21 - Patient has been tolerating quetiapine 150 mg and lamotrigine 25 mg initiated this morning and current doses of lamotrigine and quetiapine will be continued. - Patient agrees to discontinue citalopram 10 mg while she stays in the unit and it will be discontinued from tomorrow morning. - Patient denies acute SI. - Patient has been working on her loneliness feeling to be independent and the living plan after being discharged with discussed. - Lab results reviewed with the patient and fasting lipid panel and fasting glucose are all within normal limits. 08/22 - Patient agrees to titrate quetiapine to 200 mg this evening since patient has been complaining of anxious feeling. Since she also has high baseline anxiety, augmentation with buspirone can be considered if quetiapine 200 mg does not help her anxiety. Patient was encouraged to utilize hydroxyzine 25 mg as needed for increased anxiety. - Patient was advised to monitor any withdrawal symptoms of citalopram since it is discontinued today and she agrees that we will not resume citalopram due to her bipolar diagnosis. - Family meeting with parents yesterday was productive but she has been having a concern of the idea that they will stay with her in her one-bedroom apartment for extended period of time due to privacy and independency. (2) ADHD (attention deficit hyperactivity disorder), inattentive type: 08/18 - resume own supply Adderall XR 25 mg po qam tomorrow, doubt will need booster dose of Adderall 10 mg here as not actively studying. Did confirm no family history of structural cardiac abnormality/arrhythmia. No personal history of cardiac issues. 08/19 - 08/20 - Continue as above - monitor for signs of activation/ching/hypomania related to stimulant use as medication is being resumed. 08/21 - The potential risks of induced hypomanic episodes with stimulant use was discussed with the patient when the patient wanted to resume booster dose of Adderall 10 mg and she understands this and she wants to resume Adderall 10 mg when it is necessary. 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 Chief Complaint "I feel anxious since last night and I don't want to have negative thoughts". Review of Systems Notes Constitutional: denied cardiovascular: denied Respiratory: denied GI: denied Neurologic: denied Psychiatric: denies symptoms other than stated above Remainder of 10 body systems also reviewed and denied other than noted above. Sleep Information Total Hours of Sleep: 7 Sleep Comments: Patient slept 0.5 hours prior to 0000. Meal Information Percent Meal Consumed - Breakfast: 100 Percent Meal Consumed - Lunch: 100 Percent Meal Consumed - Dinner: 100 Nutrition Comment: per meal record Subjective Subjective Patient was seen and assessed and interval progress reviewed with nursing and social work. Staff report the patient has been participating in group programming and group activities. She had a phone meeting with parents last night and she expressed some resentment about them afterwards. Patient was seen today to assess progress since admission. Patient reports that she has been feeling anxious since last night and she cannot pinpoint the reason why she feels anxious. She admits that she is a constant worrier and she worries about almost everything all the time. Also her thoughts are almost always negative and she does not want to have negative thoughts constantly. She woke up last night a couple of times because of discomfort and anxious feeling and this morning she felt more anxious all of a sudden. She tried hydroxyzine 25 mg without significant relief. She admits that she has been worrying about a lot of things since last night, including aftercare plan, her schoolwork, and future career. Also she had a family meeting over the phone last evening and she discussed with her parents her working diagnosis, and plan after they come back to [place] from [facility]. After the meeting, she discussed her emotions with social service technician because she did not feel good. She reports that she always had a hard time relying on her parents since 20 years old. They have been reluctant to help her until things get really worse and she feels she has not been supported. Also she thinks staying with her parents in her one-bedroom apartment when they come to [place] in mid September does not sound reasonable to her because she needs her own privacy. She states that she likes them coming to help her but they should be nearby not in her apartment. Also her plan after being discharged discussed with the patient and she thinks she can invite one of her friends, who has been taking care of her apartment currently, to stay for a couple of days after being discharged. She continuously denies SI. Patient denies other needs or concerns today. Physical Exam Psychiatric Orientation: alert and oriented x 3 Apperance: appropriately dressed and appropriately groomed Eye Contact: good eye contact Motor Behavior: steady gait and station and no abnormal motor movements Speech: normal rate/rhythm/volume of speech Affect: + anxious affect Mood: + anxious mood Thought Process: goal directed thought process, linear/logical thought process, clear/coherent thought process and thought association intact Thought Content: reality based without delusions Suicidal Thoughts: denies suicidal thoughts Homicidal Thoughts: denies homicidal thoughts Hallucinations: no auditory hallucinations and no visual hallucinations Cognition: recent memory grossly intact, remote memory grossly intact, attention grossly intact and language grossly intact Estimated Intelligence: consistent with education level Insight: good insight Judgement: good judgement Vital Signs (Past 24 Hours) Last Vital Signs Temp 36.3 C L 08/22/20 06:27 Pulse 86 08/22/20 06:28 Resp 17 08/22/20 06:27 BP 106/71 08/22/20 06:28 Pulse Ox 99 08/18/20 03:42 Results & Data ([facility]) Current Inpatient Medications Current Inpatient Medications: Current Inpatient Medications Acetaminophen (Acetaminophen 325 Mg Tab) 650 mg PO Q4H PRN PRN Reason: Headache or Minor Fever Stop: 09/17/20 03:36 Al Hydrox/Mg Hydrox/Simethicone (Aluminum/Magnesium Susp 30 Ml Udc) 30 ml PO Q4H PRN PRN Reason: GI Upset Stop: 09/17/20 03:36 Amphetamine/Dextroamphetamine (Amphetamine Asp/Sulf/Dextramph Er 20 Mg Cap) 25 mg PO QAM [facility] Stop: 09/02/20 08:59 Last Admin: 08/22/20 09:11 Dose: 25 mg Documented by: Bismuth Subsalicylate (Bismuth Subsalicylate Liqd 236 Ml) 15 ml PO PRN PRN PRN Reason: Loose Stool Stop: 09/17/20 03:36 Hydroxyzine HCl (Hydroxyzine Hcl 25 Mg Tab) 50 mg PO HSZ PRN PRN Reason: Insomnia Stop: 09/17/20 03:36 Hydroxyzine HCl (Hydroxyzine Hcl 25 Mg Tab) 25 mg PO Q4H PRN PRN Reason: Anxiety Stop: 09/17/20 03:36 Last Admin: 08/22/20 09:37 Dose: 25 mg Documented by: Lamotrigine (Lamotrigine 25 Mg Tab) [facility] [place] Stop: 09/19/20 10:29 Last Admin: 08/22/20 09:11 Dose: 25 mg Documented by: Magnesium Hydroxide (Magnesium Hydroxide Susp 30 Ml Udc) 30 ml PO DAILY PRN PRN Reason: Constipation Stop: 09/17/20 03:36 Adderal Xr 25mg Caps : Patient's Own Controlled Med 1 ea [facility] [place] Stop: 09/02/20 08:59 Last Admin: 08/22/20 09:11 Dose: Not Given Documented by: Quetiapine Fumarate (Quetiapine Fumarate 100 Mg Tablet) 150 mg PO HS MEG Stop: 09/19/20 21:59 Last Admin: 08/21/20 22:01 Dose: 150 mg Documented by: Sodium Chloride (Sodium Chloride 0.65% Na Soln 45 Ml ([place])) 1 - 2 sprays NA PRN PRN PRN Reason: Nasal Dryness/Congestion Stop: 09/17/20 03:36 Mental Health & Subst Abuse Tx Psychiatrist Name of Psychiatrist: KIMI Sin, MSN, INCINERATOR ATTENDANT Psychiatrist's Date of Appointment with Psychiatrist: 08/28/20 Time of Appointment with Psychiatrist: 4:00 p.m. Psychiatric Appointment Comment: [facility] [place] Therapist Name of Therapist: [facility] - Veronica Bray, MS, NCC, RANGE CONSERVATIONIST Therapist's Date of Therapist Appointment: 08/26/20 Time of Therapist Appointment: 12:00 p.m. Therapy Appointment Comment: [address] [place] [address] [place] [address] Press Shop Supervisor Name of Press Shop Supervisor: . Post Discharge Appointments Primary Care Physician Name Of Family Doctor: [facility] Primary Care Provider Appointment Comment: [facility] [place] Contact Information Discharge Discharge Address: [address] [place] [address], [place] [address]
[2020-08-22] MEDS ORDERED: QUEtiapine FUMARATE 200 MG TAB PO SCH (22:00)
[2020-08-23] MEDS: AMPHETAMINE ASP/SULF/DEXTRAMPH ER 20 MG CAP PO SCH (10:01)
[2020-08-23] MEDS: lamoTRIgine 25 MG TAB PO SCH (10:01)
[2020-08-23] MEDS: ADDERAL PO SCH (10:01)
--- NOTE | 2020-08-23 12:16 | Discharge Summary ---
Date of Service August 23, 2020 History of Present Illness Patient recently started med management at [facility] with YONI Quiroga. She described ongoing depressive symptoms as well as possible hypomanic behavior so a taper of Celexa was initiated from 30 mg to 20 mg then 10 mg. On 10 mg she started to feel panic and continued to have difficulty sleeping. It was unclear how many of the symptoms were related to discontinuation syndrome vs. breakthrough. She started worrying about having SI that she may act impulsively and was started on low dose Seroquel on 08/14. Despite improvement with sleep she continued to feel that moods were too unpredictable for her to cope and she came to ED due to ongoing crying, sadness, "pain", poor appetite and poor self care. She had flushed her Benadryl as she worried she may OD on it. She also had difficulty caring for her cat. She can't focus due to the emotions, denies it is ADHD related and states that symptoms are generally well controlled on Adderall "until my mood takes over". She states that her periods of low mood and need to sleep excessively (10 hrs or more) can last over 1 month and these alternate with shorter periods of elevated mood like "I wake up jacked to just go". She may get 3-4 hours a night even with OTC melatonin and her roommates (when she had them) would wonder what was up. She denies acting out with SIB but she will blame herself if she gets angry. During an up period, like last week she only slept a few hours and then texted a friend to impulsively drive to [place]. She doesn't know anyone there and didn't have a specific plan, they just turned around and drove back after a few hours. Her mood shifts occur regardless of interpersonal conflict but she does report being very sensitive to perceived slights by peers. Physical Exam Psychiatric Orientation: alert, oriented x 3 and cooperative Apperance: appropriately dressed, appropriately groomed and appeared stated age Eye Contact: good eye contact Motor Behavior: steady gait and station Speech: normal rate/rhythm/volume of speech Affect: euthymic affect "Much better" Thought Process: goal directed thought process, linear/logical thought process and clear/coherent thought process Thought Content: reality based without delusions Suicidal Thoughts: denies suicidal thoughts Homicidal Thoughts: denies homicidal thoughts Hallucinations: no auditory hallucinations Cognition: recent memory grossly intact, remote memory grossly intact, attention grossly intact and language grossly intact Estimated Intelligence: + above average estimated intelligence Insight: good insight Judgement: good judgement Vital Signs (Past 24 Hours) Last Vital Signs Temp 36.8 C 08/23/20 12:05 Pulse 88 08/23/20 12:05 Resp 18 08/23/20 12:05 BP 94/61 L 08/23/20 12:05 Pulse Ox 99 08/23/20 12:05 Principal Diagnosis Bipolar II Disorder Psychiatric Data During the course of hospitalization the patient was offered various modalities of psychiatric treatment and education. These included individual, group, recreational, and family interventions. In addition, she was offered chemotherapy. Because it was determined at admission that the patient's clinical history was consistent with bipolar disorder, as opposed to unipolar depression, a decision was made to taper/discontinue citalopram, while adding lamotrigine 25 mg daily as a mood stabilizer, and increasing her dose of quetiapine (Seroquel) from 50 mg at bedtime to a dose of 200 mg at bedtime. Material risks associated with lamotrigine were reviewed with the patient. These reviewed risks included, but were not limited to, Bailon-Alfredo syndrome and the patient was able to correctly tell us how to recognize the possible onset of Bailon-Alfredo syndrome as well as the steps that she would need to take promptly should she suspected the emergence of the syndrome. In addition, material risks and anticipated benefits of higher dose quetiapine were reviewed with the patient. These risks, as discussed with the patient, included but were not limited to the details of metabolic syndrome. The patient asked several questions and indicated understanding. During the stay, the patient focused on issues specific to her self-esteem, her tendency to overinterpret or misinterpret perceived slights from other people, and the difficulty that she sometimes has in regulating her response to sudden shifts in her mood. Specifically, she focused on avoiding immediately reacting to an emotion before fully processing both the possible source or sources of the emotion and her instinctive response to the emotion. The patient also clarified that although she had had suicidal thoughts, and although she has a history of such thoughts, the thoughts are passive in nature and are not associated with any active plan or intent. The patient's mood stabilized during the stay and the panic episodes that she had experienced in the period leading up to the admission stopped. Patient participated actively in treatment. The patient's parents have been temporarily living in [facility], and are normally based in [facility], but decided to come to the and secure a renal unit here in [place], later in the month of September 2020, in order to offer support and help to the patient as needed. By discharge, the patient's affect was bright. Her thought processes were tight. There is no evidence of any delusional material in the patient's thought content, and she convincingly reported that she was having no further thoughts of self injury. She also notes that she has never had thoughts of intentionally causing physical harm to the person or property of others. The treatment team is in agreement that the patient has received maximum benefit from inpatient psychiatric hospitalization and is now prepared to safely return to the community for ongoing treatment on an outpatient basis. Condition at Discharge: The patient was found to be pleasant, cooperative, and appropriately dressed and groomed. Attained good eye contact and her speech was delivered at a normal rate and rhythm. Her speech was also spontaneous and articulate. The patient reports that her mood is "much better," and her affect was euthymic. The patient's thought processes demonstrated tight associations, and her thought content was devoid of any psychotic features. She was able to summarize the issues that she had focused upon in the hospital, and some of the skills that she had learned in therapy while hospitalized. There is no evidence of any perceptual disturbances, and the patient reports that she is not having suicidal thoughts. She also stated clearly that although she has a history of recurrent thoughts of suicide when frustrated or feeling slighted, or while depressed, she has no history of having any active suicidal plan or intent in association with these thoughts. She also reiterates that she does not have any history of intentional self-injurious behaviors. The patient has no homicidal thoughts. Her intelligence is estimated to be above average. Her insight and judgment are both assessed as being good. Transition of Care Transition Of Care Record: was reviewed with the patient Advance Directives Advance Directives Information Provided: Yes Advance Directives: No Mental Health Advance Directive: No Advance Directives on File: No Living Will: No Power of Supervisor [employer]: No Advance Directives Reason:: Declines as Mental Health Visit. Risk Factors Assessment History of major mental illness. History of suicidal ideation. Limited emot ional regulation. 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 Total Time Total Time Spent: Greater Than 30 Minutes Total Time Includes: Examination of the patient, Discharge Planning, Medication Reconciliation and Communication with other providers Discharge Data Lab Results 08/17/20 08/17/20 08/17/20 19:43 19:43 19:43 WBC RBC Hgb Hct MCV MCH MCHC RDW Std Deviation RDW Coeff of Kamille Plt Count MPV Immature Gran % (Auto) Neut % (Auto) Lymph % (Auto) [place] % (Auto) Eos % (Auto) Baso % (Auto) Neut # (Auto) Lymph # (Auto) [place] # (Auto) Eos # (Auto) Baso # (Auto) Immature Gran # (Auto) Sodium Potassium Chloride Carbon Dioxide Anion Gap BUN Creatinine Est Cr Clr Drug Dosing Est GFR ( Amer) Est GFR (Non-Af Amer) BUN/Creatinine Ratio Glucose Fasting Glucose Calcium Total Bilirubin AST ALT Alkaline Phosphatase Total Protein Albumin Globulin Albumin/Globulin Ratio Triglycerides Cholesterol LDL Cholesterol, Calc VLDL Cholesterol, Calc HDL Cholesterol Cholesterol/HDL Ratio TSH Urine Color Yellow Urine Appearance Clear Urine pH 7.5 Ur Specific Lindstrom 1.022 Urine Protein Negative Urine Glucose (UA) Negative Urine Ketones Trace H Urine Blood Negative Urine Nitrite Negative Urine Bilirubin Negative Urine Urobilinogen Negative Ur Leukocyte Esterase Negative POC Ur Test NEG Salicylates Urine Opiates Screen Neg Ur Methadone, Qual Neg Acetaminophen Urine Barbiturates Neg Ur Phencyclidine (PCP) Neg U Amphetamines Confirm U Amphetamin/Meth Scrn Pos H U Methamphetamin Confrm MDMA (Ecstasy) Screen Neg U Benzodiazepines Scrn Neg Ur Cocaine Metabolite Neg U Marijuana (THC) Screen Neg Drug Screen Comment Ethyl Alcohol mg/dL COVID-19 Eval Order SARS-CoV-2, RNA, NAAT 08/17/20 08/17/20 08/17/20 19:43 19:55 19:55 WBC 7.61 RBC 4.57 Hgb 15.0 Hct 42.0 MCV 91.9 MCH 32.8 MCHC 35.7 RDW Std Deviation 41.7 RDW Coeff of Kamille 12.3 Plt Count 360 MPV 9.1 Immature Gran % (Auto) 0.1 Neut % (Auto) 72.8 Lymph % (Auto) 19.7 [place] % (Auto) 5.9 Eos % (Auto) 1.4 Baso % (Auto) 0.1 Neut # (Auto) 5.53 Lymph # (Auto) 1.50 [place] # (Auto) 0.45 Eos # (Auto) 0.11 Baso # (Auto) 0.01 Immature Gran # (Auto) 0.01 Sodium 138 Potassium 3.6 Chloride 105 Carbon Dioxide 28 Anion Gap 5.0 BUN 10 Creatinine 0.80 Est Cr Clr Drug Dosing Not Reportable Est GFR ( Amer) 120.4 Est GFR (Non-Af Amer) 103.9 BUN/Creatinine Ratio 12.7 Glucose 95 Fasting Glucose Calcium 9.4 Total Bilirubin 0.5 AST 10 L ALT 17 Alkaline Phosphatase 57 Total Protein 7.8 Albumin 4.0 Globulin 3.8 Albumin/Globulin Ratio 1.1 Triglycerides Cholesterol LDL Cholesterol, Calc VLDL Cholesterol, Calc HDL Cholesterol Cholesterol/HDL Ratio TSH 0.938 Urine Color Urine Appearance Urine pH Ur Specific Lindstrom Urine Protein Urine Glucose (UA) Urine Ketones Urine Blood Urine Nitrite Urine Bilirubin Urine Urobilinogen Ur Leukocyte Esterase POC Ur Test Salicylates Urine Opiates Screen Ur Methadone, Qual Acetaminophen Urine Barbiturates Ur Phencyclidine (PCP) U Amphetamines Confirm [id number] H U Amphetamin/Meth Scrn U Methamphetamin Confrm NEGATIVE MDMA (Ecstasy) Screen U Benzodiazepines Scrn Ur Cocaine Metabolite U Marijuana (THC) Screen Drug Screen Comment SEE NOTE Ethyl Alcohol mg/dL COVID-19 Eval Order SARS-CoV-2, RNA, NAAT 08/17/20 08/17/20 08/18/20 19:55 19:55 00:29 WBC RBC Hgb Hct MCV MCH MCHC RDW Std Deviation RDW Coeff of Kamille Plt Count MPV Immature Gran % (Auto) Neut % (Auto) Lymph % (Auto) [place] % (Auto) Eos % (Auto) Baso % (Auto) Neut # (Auto) Lymph # (Auto) [place] # (Auto) Eos # (Auto) Baso # (Auto) Immature Gran # (Auto) Sodium Potassium Chloride Carbon Dioxide Anion Gap BUN Creatinine Est Cr Clr Drug Dosing Est GFR ( Amer) Est GFR (Non-Af Amer) BUN/Creatinine Ratio Glucose Fasting Glucose Calcium Total Bilirubin AST ALT Alkaline Phosphatase Total Protein Albumin Globulin Albumin/Globulin Ratio Triglycerides Cholesterol LDL Cholesterol, Calc VLDL Cholesterol, Calc HDL Cholesterol Cholesterol/HDL Ratio TSH Urine Color Urine Appearance Urine pH Ur Specific Lindstrom Urine Protein Urine Glucose (UA) Urine Ketones Urine Blood Urine Nitrite Urine Bilirubin Urine Urobilinogen Ur Leukocyte Esterase POC Ur Test Salicylates < 1.7 L Urine Opiates Screen Ur Methadone, Qual Acetaminophen < 2 L Urine Barbiturates Ur Phencyclidine (PCP) U Amphetamines Confirm U Amphetamin/Meth Scrn U Methamphetamin Confrm MDMA (Ecstasy) Screen U Benzodiazepines Scrn Ur Cocaine Metabolite U Marijuana (THC) Screen Drug Screen Comment Ethyl Alcohol mg/dL < 3.0 COVID-19 Eval Order Covid19 [facility] SARS-CoV-2, RNA, NAAT 08/18/20 08/20/20 00:29 08:47 WBC RBC Hgb Hct MCV MCH MCHC RDW Std Deviation RDW Coeff of Kamille Plt Count MPV Immature Gran % (Auto) Neut % (Auto) Lymph % (Auto) [place] % (Auto) Eos % (Auto) Baso % (Auto) Neut # (Auto) Lymph # (Auto) [place] # (Auto) Eos # (Auto) Baso # (Auto) Immature Gran # (Auto) Sodium Potassium Chloride Carbon Dioxide Anion Gap BUN Creatinine Est Cr Clr Drug Dosing Est GFR ( Amer) Est GFR (Non-Af Amer) BUN/Creatinine Ratio Glucose Fasting Glucose 90 Calcium Total Bilirubin AST ALT Alkaline Phosphatase Total Protein Albumin Globulin Albumin/Globulin Ratio Triglycerides 77 Cholesterol 124 LDL Cholesterol, Calc 48 VLDL Cholesterol, Calc 15 HDL Cholesterol 61 Cholesterol/HDL Ratio 2 TSH Urine Color Urine Appearance Urine pH Ur Specific Lindstrom Urine Protein Urine Glucose (UA) Urine Ketones Urine Blood Urine Nitrite Urine Bilirubin Urine Urobilinogen Ur Leukocyte Esterase POC Ur Test Salicylates Urine Opiates Screen Ur Methadone, Qual Acetaminophen Urine Barbiturates Ur Phencyclidine (PCP) U Amphetamines Confirm U Amphetamin/Meth Scrn U Methamphetamin Confrm MDMA (Ecstasy) Screen U Benzodiazepines Scrn Ur Cocaine Metabolite U Marijuana (THC) Screen Drug Screen Comment Ethyl Alcohol mg/dL COVID-19 Eval Order SARS-CoV-2, RNA, NAAT NEGATIVE Hospital Course (1) Bipolar II disorder: 08/18 - The patient was admitted to the [facility] ([facility] health unit) on q15 min checks (behavioral with suicide precautions) for safety. The patient will participate in group, recreational, and milieu therapies and will be offered additional individual and family sessions as clinically appropriate. Psychoeducation was provided re: diagnosis and reviewed how antidepressants can affect cycling. Discussed the personality disorders do not cause level of sleep disruption she is describing. She agreed to resume Celexa taper 10 mg and increase Seroquel to 100 mg po qhs. Risks/benefits/alternatives reviewed re: atypical for mood stabilizer and need for monitoring TD and metabolic parameters. Fasting glucose and cholesterol panel in am, states she's had previously due to family hx of heart disease in older life but unlikely within 3 months. 08/19 - Continue current medication regimen at this time. Discussed a few options with regard to trajectory of medication adjustments. Pt states that she is hoping to continue quetiapine, but that she had also been discussing eventually starting lamotrigine with her outpatient psychiatric prescriber. Given AM grogginess, decision was made to not pursue immediate changes, but patient will be provide with patient information on lamotrigine for further review. - Fasting labs reordered for tomorrow AM, lab delay this morning and patient had already eaten breakfast - Somewhat brief family meeting was conducted with parents yesterday - patient may benefit from contact with another, more local support for discussion of discharge and safety planning 08/20 - Pt agreeable with titrating quetiapine to 150mg this evening - will continue citalopram at 10mg. - Pt also expressed desire to begin lamotrigine - risks, benefits, and potential side effects were reviewed. This specifically included risk of SJS and HLH - warning signs and recommendations. Pt verbalized understanding of risks as well as explanation of standard titration. Will initiate 25mg qAM starting with a dose today. - Pt denies acute SI, but admits to still feeling lonely and abandoned. She reports hopefulness that parents will be willing to participate in another family meeting, as she states they have become more aware of the severity of the situation and are making arrangements to return home. 08/21 - Patient has been tolerating quetiapine 150 mg and lamotrigine 25 mg initiated this morning and current doses of lamotrigine and quetiapine will be continued. - Patient agrees to discontinue citalopram 10 mg while she stays in the unit and it will be discontinued from tomorrow morning. - Patient denies acute SI. - Patient has been working on her loneliness feeling to be independent and the living plan after being discharged with discussed. - Lab results reviewed with the patient and fasting lipid panel and fasting glucose are all within normal limits. 08/22 - Patient agrees to titrate quetiapine to 200 mg this evening since patient has been complaining of anxious feeling. Since she also has high baseline anxiety, augmentation with buspirone can be considered if quetiapine 200 mg does not help her anxiety. Patient was encouraged to utilize hydroxyzine 25 mg as needed for increased anxiety. - Patient was advised to monitor any withdrawal symptoms of citalopram since it is discontinued today and she agrees that we will not resume citalopram due to her bipolar diagnosis. - Family meeting with parents yesterday was productive but she has been having a concern of the idea that they will stay with her in her one-bedroom apartment for extended period of time due to privacy and independency 08/23 -Patient reports that she feels that her mood has gotten "much better" and has stabilized. -She notes that she appears to be tolerating her medications well. Her report is that she is sleeping well with quetiapine 200 mg at bedtime, and notes that she is also found that as needed hydroxyzine 25 mg has been helpful in managing breakthrough anxiety symptoms. She also indicates that she is not aware of any adverse effects currently present associated with lamotrigine 25 mg a day. The material risks and benefits of both quetiapine and lamotrigine were reviewed with the patient today, and she indicated understanding after asking several questions. -The patient has successfully completed a detailed plan for safety in the community. Today she is able to independently and accurately describe the plan, and she notes her intent to follow it as needed in the community following discharge. (2) ADHD (attention deficit hyperactivity disorder), inattentive type: 10/18 - resume own supply Adderall XR 25 mg po qam tomorrow, doubt will need booster dose of Adderall 10 mg here as not actively studying. Did confirm no family history of structural cardiac abnormality/arrhythmia. No personal history of cardiac issues. 08/19 - 08/20 - Continue as above - monitor for signs of activation/ching/hypomania related to stimulant use as medication is being resumed. 08/21 - The potential risks of induced hypomanic episodes with stimulant use was discussed with the patient when the patient wanted to resume booster dose of Adderall 10 mg and she understands this and she wants to resume Adderall 10 mg when it is necessary. 08/23 -Patient is again reminded of the risk of possibly inducing ching or hypomania by taking stimulant medication such as Adderall. She is quite aware of the symptoms of ching or hypomania and plans to work together with her outpatient psychiatrist in this regard. Mental Health & Subst Abuse Tx Psychiatrist Name of Psychiatrist: KIMI Sin MSN, REGULATORY PROCESS MANAGER Psychiatrist's Date of Appointment with Psychiatrist: 08/28/20 Time of Appointment with Psychiatrist: 4:00 p.m. Psychiatric Appointment Comment: [facility] Therapist Name of Therapist: [facility] - Veronica Bray, MS, NCC, SENIOR WEB SERVICES DEVELOPER Therapist's Date of Therapist Appointment: 08/26/20 Time of Therapist Appointment: 12:00 p.m. Therapy Appointment Comment: [address] [place] [id number] Food Mixer Name of Food Mixer: . Post Discharge Appointments Primary Care Physician Name Of Family Doctor: [facility] Primary Care Provider Appointment Comment: [facility] Smoking Cessation Counseling Tobacco Cessation Medication Prescribed at Discharge: Not Applicable/Non-Smoker Contact Information Discharge Discharge Address: [address] [place] [address], [place] [address] Discharge Plan Discharge Items Patient Disposition: Home - Self-Care Reason For Visit: DEPRESSION Discharge Diagnosis: Bipolar II Disorder Activity: Resume your previous activity Non-emergency contact: Psychiatrist and Therapist Call non-emergency contact if: you have any medication questions and your symptoms worsen Follow-up/Referrals: [facility] [Primary Care Provider] - Diet: Regular Addtl Attending Provider Instructions: SPECIAL CARE INSTRUCTIONS: 1. Follow through with your scheduled aftercare appointments. If unable to keep an appointment, please call to reschedule. 2. Take your medication only as prescribed. Medication should not be changed or stopped without the approval of your doctor. In the event of worsening symptoms or concerns about side effects, contact your doctor immediately. 3. Utilize new healthy coping skills, anger management skills, and stress management skills learned during your hospitalization. Journal feelings and process them with a support person. Identify stressors or situations that may result in relapse, deterioration or inappropriate behaviors and develop a plan to deal with those issues. 4. If your coping skills are ineffective and you are in crisis, contact your outpatient providers for direction. If unable to reach your providers, please call the [facility] CRISIS LINE AT , go to the [facility] walk-in center at [address], [place], or go to the closest Emergency Room. 5. Avoid alcohol and un-prescribed drugs. 6. You have been provided with the Mental Health Advance Directives Pamphlet for your review. AFTERCARE APPOINTMENTS: * Please call your insurance company prior to your scheduled appointment to confirm your aftercare providers are covered. Take your insurance information to your appointments. WHO TO CALL AND WHEN: Medical Emergencies: For questions or emergencies related to your hospital stay, please contact the Inpatient Behavioral Health Unit at [phone]. A tutoring clinician is on-call 24/05 for the Behavioral Health Unit for emergencies At any time you feel your situation is an emergency, you may also call 911 immediately. Pending Studies at Discharge: No Stand-Alone Forms: [facility], Smoking Cessation, Suicide Prevention Resources Medications and DC Order Prescriptions: New quetiapine [Seroquel] 200 mg Tablet 200 mg PO HS Qty: 30 RF: 0 lamotrigine [Lamictal] 25 mg Tablet 25 mg PO QAM Qty: 30 RF: 0 hydroxyzine HCl 25 mg Tablet 25 mg PO Q4H PRN (Reason: Anxiety) Qty: 30 RF: 1 Continued dextroamphetamine-amphetamine [Adderall] 10 mg Tablet 10 mg PO DAILY PRN (Reason: Focus) RF: 0 dextroamphetamine-amphetamine [Adderall XR] 20 mg Capsule,Extended Release 24hr 25 mg PO QAM PRN (Reason: Focus) RF: 0 Nexplanon 68 mg Implant 68 mg SUBDERMAL DIRECTED RF: 0 Discontinued citalopram 20 mg Tablet 20 mg PO DAILY RF: 0 quetiapine 25 mg tablet 50 mg PO HS RF: 0 Discharge Orders: Discharge Order (Routine); Ordered 08/23/20 Ordered By: Jacinto Palomino Admission Data Admit Date/Time: 08/18/20 02:32 Attending Provider: Teresa John Admit Provider: Clarisse Hayward Primary Care Provider: [facility] Other Interventions: Discharge Summary Assessment (RN) Last Done: 08/23/20 12:05 PSY Interdisciplinary Discharge Planning Last Done: 08/23/20 12:09 C[place] [address] D/C day mgmt > 30 min Patient Type Established History Expanded Problem Focused Exam Expanded Problem Focused Medical Decision Making Moderate Complexity Diagnoses Bipolar II disorder F31.81 ADHD (attention deficit hyperactivity disorder), inattentive type F90.0 Time Spent (min) 65
[2020-08-23] MEDS ORDERED: DESTROY THIS MEDICATION ONE (12:17)
== END 2020-08-23 13:55 | disposition home or self-care (01) | DRG 885 ==
LOC: ED 19:16 → SUATTDRO 08-18 02:32 → 3S 08-18 02:32